=== PATIENT | female | born 1935 | race Caucasian/White ===

== ENCOUNTER 2018-01-02 12:59 | Emergency (ER) | payer OTHER ==
--- NOTE | 2018-01-02 13:39 | RAD REPORT ---
EXAM DESCRIPTION: CT - Head C Spine Mpr Wo Con - 01/02/2018 1:29 pm CLINICAL HISTORY: Head and neck injury status post fall. Head and neck pain COMPARISON: None. TECHNIQUE: Computed axial tomography of the head and cervical spine was obtained. Sagittal and coronal reconstruction was performed. All CT scans are performed using dose optimization technique as appropriate and may include automated exposure control or mA/KV adjustment according to patient size. FINDINGS: An intracranial bleed is not seen. The ventricles are normal in caliber. An extra-axial fl uid collection is not noted.Fluid within the visualized sinuses and mastoids is not seen A cervical fracture is not visualized. No dislocation is noted. IMPRESSION: No acute intracranial abnormality is seen. A cervical fracture is not visualized. If the patient continues to have symptoms to suggest intracra nial /spinal cord pathology then MRI would be recommended
[2018-01-02] MEDS ORDERED: BUPIVACAINE 0.5% PF 10 ML VIAL ONE (13:40)
[2018-01-02] MEDS ORDERED: LIDOCAINE 1% 20 ML MDV ONE (13:40)
--- NOTE | 2018-01-02 14:00 | RAD REPORT ---
EXAM DESCRIPTION: RAD -Hand Left 3 View - 01/02/2018 1:49 pm CLINICAL HISTORY: Left hand pain status post injury FINDINGS: No fracture or dislocation is seen. The bones are osteoporotic. Chondrocalcinosis within the wrist is present
--- NOTE | 2018-01-02 14:04 | RAD REPORT ---
EXAM DESCRIPTION: RAD - Knee Left 3 View - 01/02/2018 1:49 pm CLINICAL HISTORY: Left knee pain status post injury FINDINGS: No acute fracture or dislocation is seen. The bones are osteoporotic. Minimal compression of the lateral tibial plateau is unchanged from December 2016 and may be the sequela of an old fracture.
--- NOTE | 2018-01-02 14:05 | RAD REPORT ---
EXAM DESCRIPTION: RAD - Knee Right 3 View - 01/02/2018 1:49 pm CLINICAL HISTORY: Right knee pain status post fall FINDINGS: No fracture or dislocation is seen. The bones are osteoporotic
[2018-01-02] MEDS ORDERED: DERMABOND SKIN ADHESIVE TOP ONE (14:20)
--- NOTE | 2018-01-02 15:47 | ER ---
Nurse's Notes [facility] Name: Radha Encarnacion Age: 82 yrs Sex: Female : 1935 Arrival Date: 01/02/2018 Time: 13:03 Bed 18 Private MD: Diagnosis: Laceration without foreign body of left hand;Abrasion of lip;Other slipping, tripping and stumbling and falls Presentation: 01/02 13:03 Presenting complaint: Patient states: Tripped over curb at [place] [employer]. Abrasions aj to bilateral hand and left lip. Care prior to arrival: None. Mechanism of Injury: Fall from standing position. Trauma event details: Injury occurred in the county of Injury occurred: Injury occurred: January 02, 2018 Injury occurred at: 13:05. 13:03 Acuity: SANTI 4 aj 13:03 Method Of Arrival: EMS: [facility] aj 13:09 Transition of care: patient was not received from another setting of care. Onset of aj symptoms was January 02, 2018. Risk Assessment: Do you want to hurt yourself or someone else? Patient reports no desire to harm self or others. Initial Sepsis Screen: Does the patient meet any 2 criteria? No. Patient's initial sepsis screen is negative. Does the patient have a suspected source of infection? No. Patient's initial sepsis screen is negative. Trauma Activation: Alert Physician: ED Physician; Name: ; Notified At: ; Arrived At: Physician: General Surgeon; Name: ; Notified At: ; Arrived At: Physician: Radiology; Name: ; Notified At: ; Arrived At: Physician: Respiratory; Name: ; Notified At: ; Arrived At: Physician: Lab; Name: ; Notified At: ; Arrived At: Historical: - Allergies: 13:10 Benadryl; very senstive to it, makes her very anxious and wound up; aj 13:10 CEPHALOSPORINS; aj 13:10 codeine sulfate; aj 13:10 PENICILLINS; aj 13:10 Sulfa (Sulfonamide Antibiotics); aj - Home Meds: 13:10 hydrochlorothiazide 12.5 mg Oral cap 1 cap once daily [Active]; aj - PMHx: 13:10 Hypertension; R hip broken in fall- hip has metal humberto.; Vertigo; aj - PSHx: 13:10 Hysterectomy; L knee; aj - Immunization history: Last tetanus immunization: - up to date. - Social history:: Smoking status: Patient/guardian denies using tobacco. - Ebola Screening: : Patient negative for fever greater than or equal to 101.5 degrees Fahrenheit, and additional compatible Ebola Virus Disease symptoms Patient denies exposure to infectious person Patient denies travel to an Ebola-affected area in the 21 days before illness onset No symptoms or risks identified at this time. Screenin:36 Abuse screen: Denies threats or abuse. Denies injuries from another. Tuberculosis aj screening: No symptoms or risk factors identified. 14:36 Nutritional screening: No deficits noted. Fall Risk None identified. aj Primary Survey: 13:06 A: Airway: patent. Breathing/Chest: Respiratory pattern: regular, Respiratory effort: aj spontaneous, unlabored, Breath sounds: clear, bilaterally. Chest inspection: symmetrical rise and fall of the chest. Circulation: Skin color: pink, Skin temperature: warm, dry. Disability Alert. 14:05 Reassessment Airway Airway Patent Breathing/Chest Respiratory pattern Regular aj Respiratory effort Spontaneous Unlabored Circulation Color [place] Disability Alert. Assessment: 13:03 General: Appears in no apparent distress. comfortable, Behavior is calm, cooperative, aj appropriate for age. Pain: Complains of pain in mouth, right hand and left hand. Neuro: Level of Consciousness is awake, alert, obeys commands, Oriented to person, place, time, situation, Appropriate for age. Respiratory: Airway is patent Respiratory effort is even, unlabored, Respiratory pattern is regular, symmetrical. Derm: Skin is intact, is healthy with good turgor, Skin is pink, warm \T\ dry. normal. Injury Description: Abrasion sustained to right hand, left hand and mouth. Vital Signs: 13:06 BP 195 / 84; Pulse 85; Resp 19; Temp 98.5; Pulse Ox 98% on R/A; Weight 60.78 kg; Height aj 5 ft. 5 in. (165.10 cm); 15:48 BP 165 / 83; Pulse 73; Resp 18; Pulse Ox 99% on R/A; mb3 13:06 Body Mass Index 22.30 (60.78 kg, 165.10 cm) aj [place] Coma Score: 13:06 Eye Response: spontaneous(4). Verbal Response: oriented(5). Motor Response: obeys commands(6). Total: 15. Trauma Score (Adult): 13:06 Eye Response: spontaneous(1); Verbal Response: oriented(1); Motor Response: obeys aj commands(2); Systolic BP: > 89 mm Hg(4); Respiratory Rate: 10 to 29 per min(4); [place] Score: 15; Trauma Score: 12 ED Course: 13:03 Patient arrived in ED. aj 13:05 Triage completed. aj 13:05 Hernandez Barnett NP is PHCP. pm1 13:05 Cliff Murcia MD is Attending Physician. pm1 13:10 Arm band placed on left wrist. Patient placed in an exam room. aj 13:[address] via stretcher. cw1 13:29 CT Head C Spine In Process Unspecified. EDMS 13:42 Toya Dela Cruz, CARMIAN is Primary Nurse. aj 13:49 Hand Left 3 View XRAY In Process Unspecified. EDMS 13:49 Knee Left 3 View XRAY In Process Unspecified. EDMS 13:49 Knee Right 3 View XRAY In Process Unspecified. EDMS 14:36 Patient has correct armband on for positive identification. aj 14:36 Patient maintains SpO2 saturation greater than 95% on room air. aj 14:36 Assist provider with laceration repair on right hand and left hand that was 2.5 cm. or aj less using sutures. Set up tray. Performed by Hernandez Barnett STUDENT LOAN COUNSELOR Dressed with 4X4s, Patient tolerated well. 15:00 Thermoregulation: warm blanket given to patient. mb3 15:49 Patient did not have IV access during this emergency room visit. mb3 Administered Medications: 14:37 Drug: Lidocaine (1 %) 5 ml Volume: 5 ml; Route: Infiltration; aj 14:38 Drug: Bupivacaine (0.5 %) 10 ml Volume: 10 ml; Route: Infiltration; aj Intake: 16:18 PO: 60ml; Total: 60ml. mb3 Outcome: 15:46 Discharge ordered by . pm1 16:15 Patient left the ED. aj 16:17 Discharged to home ambulatory, with family. mb3 16:17 Condition: stable 16:17 Discharge instructions given to patient, family, Instructed on discharge instructions, follow up and referral plans. wound care, Demonstrated understanding of instructions, follow-up care, wound care. 16:18 Patient's length of stay was not longer than 2 hours. mb3 Signatures: Dispatcher [employer] Toya Moore RN RN aj Woodley, Crystal cw1 Hernandez Barnett, STUDENT LOAN COUNSELOR STUDENT LOAN COUNSELOR pm1 Jagdish King RN RN mb3 Corrections: (The following items were deleted from the chart) 13:07 13:03 Trauma Activation: Not Applicable ady garsia
--- NOTE | 2018-01-02 15:47 | EDPHYS ---
Physician Documentation [facility] Name: Radha Encarnacion Age: 82 yrs Sex: Female : 1935 Arrival Date: 01/02/2018 Time: 13:03 Bed 18 Private MD: ED Physician Cliff Murcia HPI: 01/02 15:00 This 82 yrs old Female presents to ER via EMS with complaints of Fall Injury. pm1 15:00 Details of fall: The patient fell from an upright position, while walking. Onset: The pm1 symptoms/episode began/occurred just prior to arrival. Associated injuries: The patient sustained left hand, laceration, mouth, abrasion. The patient has experienced a previous episode, approximately 1 years ago. The patient has not recently seen a physician. Patient was walking and tripped due to change in the elevation of the concrete. Fell with left hand outstretched and injured left hand. Laceration to left hand. abrasion to left upper lip. No headache, LOC, neck pain. 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 - Social history:: Smoking status: Patient/guardian denies using tobacco. - Ebola Screening: : Patient negative for fever greater than or equal to 101.5 degrees Fahrenheit, and additional compatible Ebola Virus Disease symptoms Patient denies exposure to infectious person Patient denies travel to an Ebola-affected area in the 21 days before illness onset No symptoms or risks identified at this time. ROS: 15:00 Constitutional: Negative for fever, chills, and weight loss, Eyes: Negative for injury, pm1 pain, redness, and discharge, ENT: Negative for injury, pain, and discharge, Neck: Negative for injury, pain, and swelling, Cardiovascular: Negative for chest pain, palpitations, and edema, Respiratory: Negative for shortness of breath, cough, wheezing, and pleuritic chest pain, Abdomen/GI: Negative for abdominal pain, nausea, vomiting, diarrhea, and constipation, Back: Negative for injury and pain, : Negative for injury, bleeding, discharge, and swelling. 15:00 Neuro: Negative for headache, weakness, numbness, tingling, and seizure. 15:00 MS/extremity: Positive for laceration, of the left hand, abrasion to left side upper lip, Negative for decreased range of motion, deformity. 15:00 Skin: Positive for abrasion(s), laceration(s). Exam: 15:00 Constitutional: This is a well developed, well nourished patient who is awake, alert, pm1 and in no acute distress. Eyes: Pupils equal round and reactive to light, extra-ocular motions intact. Lids and lashes normal. Conjunctiva and sclera are non-icteric and not injected. Cornea within normal limits. Periorbital areas with no swelling, redness, or edema. ENT: Nares patent. No nasal discharge, no septal abnormalities noted. Tympanic membranes are normal and external auditory canals are clear. Oropharynx with no redness, swelling, or masses, exudates, or evidence of obstruction, uvula midline. Mucous membranes moist. 15:00 Neck: Trachea midline, no thyromegaly or masses palpated, and no cervical lymphadenopathy. Supple, full range of motion without nuchal rigidity, or vertebral point tenderness. No Meningismus. Chest/axilla: Normal chest wall appearance and motion. Nontender with no deformity. No lesions are appreciated. Cardiovascular: Regular rate and rhythm with a normal S1 and S2. No gallops, murmurs, or rubs. Normal PMI, no JVD. No pulse deficits. Respiratory: Lungs have equal breath sounds bilaterally, clear to auscultation and percussion. No rales, rhonchi or wheezes noted. No increased work of breathing, no retractions or nasal flaring. Abdomen/GI: Soft, non-tender, with normal bowel sounds. No distension or tympany. No guarding or rebound. No evidence of tenderness throughout. Back: No spinal tenderness. No costovertebral tenderness. Full range of motion. Skin: Warm, dry with normal turgor. Normal color with no rashes, no lesions, and no evidence of cellulitis. 15:00 Head/face: Exam is negative for everett signs, deformity, raccoon eyes, Noted is abrasion(s), of the mouth. 15:00 Musculoskeletal/extremity: Extremities: grossly normal except: noted in the palmar aspect of proximal phalanx of left little finger: laceration, There is no evidence of decreased ROM, deformity. Vital Signs: 13:06 BP 195 / 84; Pulse 85; Resp 19; Temp 98.5; Pulse Ox 98% on R/A; Weight 60.78 kg; Height aj 5 ft. 5 in. (165.10 cm); 15:48 BP 165 / 83; Pulse 73; Resp 18; Pulse Ox 99% on R/A; mb3 13:06 Body Mass Index 22.30 (60.78 kg, 165.10 cm) aj Thang Coma Score: 13:06 Eye Response: spontaneous(4). Verbal Response: oriented(5). Motor Response: obeys commands(6). Total: 15. Trauma Score (Adult): 13:06 Eye Response: spontaneous(1); Verbal Response: oriented(1); Motor Response: obeys aj commands(2); Systolic BP: > 89 mm Hg(4); Respiratory Rate: 10 to 29 per min(4); [place] Score: 15; Trauma Score: 12 Laceration: 15:41 Wound Repair of 3cm ( 1.2in ) subcutaneous laceration to palmar aspect of proximal pm1 phalanx of left little finger. Irregularly shaped.. Distal neuro/vascular/tendon intact. Anesthesia: Local anesthetic administered with 2 mls of Lido/Marcaine. Wound prep: Extensive cleansing with hibiclenz by dc, Wound irrigation with saline by dc, Wound explored extensively, Copious irrigation. Skin closed with 11 5-0 Prolene using simple sutures and sterile technique. Subcutaneous tissue closed with 1 5-0 Vicryl using simple sutures and sterile technique. Dressed with Neosporin, 4x4's. Patient tolerated well. 15:41 Wound Repair of 1cm ( 0.4in ) skin tear laceration to palmar aspect of proximal phalanx pm1 of left thumb. skin tear. Distal neuro/vascular/tendon intact. Wound prep: Extensive cleansing with hibiclenz by me, Wound irrigation with saline by me, Wound explored extensively, Copious irrigation. Skin closed with 1-0 Adhesive skin closure using Dermabond. Patient tolerated well. MDM: 13:14 Patient medically screened. pm1 15:44 Data reviewed: vital signs. Data interpreted: Pulse oximetry: on room air is 98 %. pm1 Interpretation: normal. Counseling: I had a detailed discussion with the patient and/or guardian regarding: the historical points, exam findings, and any diagnostic results supporting the discharge/admit diagnosis, radiology results, the need for outpatient follow up, suture removal in 10-14 days, to return to the emergency department if symptoms worsen or persist or if there are any questions or concerns that arise at home. 01/02 13:15 Order name: CT Head C Spine; Complete Time: 13:50 pm1 01/02 13:15 Order name: Hand Left 3 View XRAY; Complete Time: 14:06 pm1 01/02 13:15 Order name: Knee Left 3 View XRAY; Complete Time: 14:06 pm1 01/02 13:15 Order name: Knee Right 3 View XRAY; Complete Time: 14:06 pm1 01/02 13:15 Order name: Prolene, Sutures; Complete Time: 13:42 pm1 01/02 13:15 Order name: Dressing - Wound; Complete Time: 13:42 pm1 01/02 13:15 Order name: Gloves, Sterile; Complete Time: 13:42 pm1 01/02 13:15 Order name: Setup Suture Tray; Complete Time: 13:42 pm1 01/02 14:17 Order name: Dermabond; Complete Time: 14:38 pm1 Administered Medications: 14:37 Drug: Lidocaine (1 %) 5 ml Volume: 5 ml; Route: Infiltration; aj 14:38 Drug: Bupivacaine (0.5 %) 10 ml Volume: 10 ml; Route: Infiltration; aj Disposition: 19:00 Co-signature as Attending Physician, Cliff Murcia MD. Disposition: 01/02/18 15:46 Discharged to Home. Impression: Laceration without foreign body of left hand, Abrasion of lip, Other slipping, tripping and stumbling and falls. - Condition is Stable. - Discharge Instructions: Tissue Adhesive Wound Care, Fall Prevention and Home Safety, Laceration Care, Adult. - Medication Reconciliation Form, Thank You Letter form. - Follow up: Emergency Department; When: As needed; Reason: Worsening of condition. Follow up: Private Physician; When: 10 - 14 days; Reason: Recheck today's complaints, Continuance of care, Staple/Suture removal, Re-evaluation by your physician. - Problem is new. - Symptoms have improved. Signatures: Dispatcher [employer] EDToya Foss RN RN aj Marinas, Patrick, DANDRE ELECTRIC LIFT TRUCK DRIVER pm1 Cliff Murcia MD MD gs Corrections: (The following items were deleted from the chart) 16:15 15:46 01/02/2018 15:46 Discharged to Home. Impression: Laceration without foreign body aj of left hand; Abrasion of lip; Other slipping, tripping and stumbling and falls. Condition is Stable. Forms are Medication Reconciliation Form, Thank You Letter, Antibiotic Education, Prescription Opioid Use. Follow up: Emergency Department; When: As needed; Reason: Worsening of condition. Follow up: Private Physician; When: 10 - 14 days; Reason: Recheck today's complaints, Continuance of care, Staple/Suture removal, Re-evaluation by your physician. Problem is new. Symptoms have improved. pm1
[2018-01-02 16:44] VITALS: TEMP 98.5
[2018-01-02 16:45] VITALS: BP 165/83; O2SAT 99
== END 2018-01-02 16:15 | disposition home or self-care (01) ==
LOC: ER 12:59
PROC: 0JQK0ZZ Repair Left Hand Subcutaneous Tissue and Fascia, Open Approach (ICD-10-PCS; principal; 2018-01-02)
DX: S61.012A Laceration without foreign body of left thumb without damage to nail, initial encounter (principal); S00.511A Abrasion of lip, initial encounter; W01.0XXA Fall on same level from slipping, tripping and stumbling without subsequent striking against object, initial encounter; Y93.01 Activity, walking, marching and hiking; Y92.9 Unspecified place or not applicable; I10 Essential (primary) hypertension; Z88.3 Allergy status to other anti-infective agents; Z88.5 Allergy status to narcotic agent; Z88.0 Allergy status to penicillin; Z88.2 Allergy status to sulfonamides; Z88.8 Allergy status to other drugs, medicaments and biological substances
CPT/HCPCS: 12002; 70450; 72125; 73130; 73562 ×2; 99285; G0168

== ENCOUNTER 2021-11-10 13:55 | Observation (INO) | payer OTHER ==
--- OUTSIDE RECORDS SUMMARY | 2021-11-10 13:57 | XMS REPORT | Continuity of Care Document ---
:1935 Author Organization [facility] t Address [address] [place] [address] [address] [place] [address] Care Team Providers Name Role Phone Jorge Luis Interiano MD Attending Clinician Jorge Luis INTERIANO Attending Clinician Unavailable Payers Payer Name Policy Type Policy Number Effective Date Expiration Date S ource Problems Condition Condition Condition Status Onset Resolution Last Treating Co mments Source Name Details Category Date Date Treatment Clinician Date Hip fx, Hip fx, Disease Active 2015- [facility] right, right, 7-20 ity of closed, closed, 00:00: [place] initial initial 00 Medical encounter encounter Bran ch Allergies, Adverse Reactions, Alerts Allergy Allergy Status Severity Reaction(s) Onset Inactive Treating Comm ents Source Name Type Date Date Clinician Penicill Propensi Active Shortness of Univers in ty to Breath 7-20 ity of adverse 00:00: [place] reaction 00 Medical s Branch Sulfa Propensi Active Nausea Univers (Sulfona ty to and/or 7-20 ity of mide adverse Vomiting 00:00: [place] Antibiot reaction 00 Medica l ics) s Branch PENICILL DRUG Active SOB Univers IN INGREDI 7-20 ity of 00:00: [place] 00 Medical Branch SULFA Drug Active N/V 2015-0 Univers (SULFONA Class 7-20 ity of MIDE 00:00: [place] ANTIBIOT 00 Medical ICS) Branch Social History Social Habit Start Date Stop Date Quantity Comments Source Sex Assigned At [facility] Medical Branch Exposure to Not sure [facility] SARS-CoV-2 (event) Medica l Branch Alcohol intake 2016-08-06 2016-08-06 [facility] 00:00:00 00:00:00 Medical Branch Smoking Status Start Date Stop Date Source Never smoker [facility] Medical Branch Medications Ordered Filled Start Stop Current Ordering Indication Dosage Frequency Signature Comments Components Source Medication Medication Date Date Medication? Clinician (SIG) Name Name DIPHENHYDRA 2019-07 Yes Take by Un leelee MINE HCL 2-17 mouth. ity of (BENADRYL 20:41: [place] ALLERGY 58 Medical ORAL) Branch codeine 15 2019-07 Yes 15mg Take 15 mg U nivers mg tablet 2-17 by mouth ity of 20:41: every 4 [place] 58 (four) Medical hours as Branch needed for Pain. AMINO 2019-07 Yes Take by Univers ACIDS/CALCI 2-17 mouth. ity of UM 20:41: [place] (CALCIMIN-3 58 Medical 00 ORAL) Branch DIPHENHYDRA 2019-07 Yes Take by Un leelee MINE HCL 2-17 mouth. ity of (BENADRYL 20:41: [place] ALLERGY 58 Medical ORAL) Branch codeine 15 2019-07 Yes 15mg Take 15 mg U nivers mg tablet 2-17 by mouth ity of 20:41: every 4 [place] 58 (four) Medical hours as Branch needed for Pain. AMINO 2019-07 Yes Take by Univers ACIDS/CALCI 2-17 mouth. ity of UM 20:41: [place] (CALCIMIN-3 58 Medical 00 ORAL) Branch DIPHENHYDRA 2019-07 Yes Take by Un leelee MINE HCL 2-17 mouth. ity of (BENADRYL 20:41: [place] ALLERGY 58 Medical ORAL) Branch codeine 15 2019-07 Yes 15mg Take 15 mg U nivers mg tablet 2-17 by mouth ity of 20:41: every 4 [place] 58 (four) Medical hours as Branch needed for Pain. AMINO 2019-07 Yes Take by Univers ACIDS/CALCI 2-17 mouth. ity of UM 20:41: [place] (CALCIMIN-3 58 Medical 00 ORAL) Branch meclizine Yes TK 1 T PO Uni vers 25 mg 1-05 Q 8 HOURS ity of tablet 00:00: PRN. [place] 00 Medical Branch meclizine Yes TK 1 T PO Uni vers 25 mg 1-05 Q 8 HOURS ity of tablet 00:00: PRN. [place] [address] Medical Branch meclizine Yes TK 1 T PO Uni vers 25 mg 1-05 Q 8 HOURS ity of tablet 00:00: PRN. [place] [address] Medical Branch hydroCHLORO 2015- Yes TK 1 T PO U nivers thiazide 2-19 QD. ity of 12.5 mg 00:00: [place] tablet Medical Branch hydroCHLORO 2015-07 Yes TK 1 T PO U nivers thiazide 2-19 QD. ity of 12.5 mg 00:00: [place] tablet Medical Branch hydroCHLORO 2015-07 Yes TK 1 T PO U nivers thiazide 2-19 QD. ity of 12.5 mg 00:00: [place] tablet [facility] DOC-Q-LACE Yes TK 1 C Univ ers 100 mg 7-11 PO BID. ity of capsule 00:00: [facility] ELIQUIS 2.5 Yes TK 1 Univer s mg tablet 7-11 TABLET BY ity o f 00:00: MOUTH BID [facility] DOC-Q-LACE Yes TK 1 C Univ ers 100 mg 7-11 PO BID. ity of capsule 00:00: [facility] ELIQUIS 2.5 Yes TK 1 Univer s mg tablet 7-11 TABLET BY ity o f 00:00: MOUTH BID [facility] DOC-Q-LACE Yes TK 1 C Univ ers 100 mg 7-11 PO BID. ity of capsule 00:00: [facility] ELIQUIS 2.5 Yes TK 1 Univer s mg tablet 7-11 TABLET BY ity o f 00:00: MOUTH BID [place] [facility] Vital Signs Vital Name Observation Time Observation Value Comments Source Systolic blood 2020-07-05 20:46:00 173 mm[Hg] Univer sity [facility] pressure [facility] Diastolic blood 2020-07-05 20:46:00 81 mm[Hg] Unive rsity [facility] Heart rate 2020-07-05 20:46:00 77 /min [facility] Body height 2020-07-05 20:40:00 166.4 cm [facility] Body weight 2020-07-05 20:40:00 64.864 kg [facility] BMI 2020-07-05 20:40:00 23.43 kg/m2 [facility] Procedures This patient has no known procedures. Encounters Start End Encounter Admission Attending Care Care Encounter Source Date/Time Date/Time Type Type Clinicians Facility Department ID 2020-07-05 [facility]05 [facility] [id number] Univers 14:49:43 23:59:00 Encounter [facility] [id number] ity of Surgical [id number] [place] Specialti [id number] [place] 809 [facility] 2020-07-05 2020-07-05 Office [facility] [id number] Univers 14:15:11 15:06:40 Visit Austin Kang [facility] [id number] it y of Surgical [id number] [place] Specialti [id number] [place] 198 [facility] 2020-07-05 2020-07-05 [facility] [id number] Univers 14:30:00 14:30:00 [place] [id number] [facility]-07-05 2020-07-05 [facility] [id number] Univers 14:30:00 14:30:00 [place] [facility] Results This patient has no known results.
[2021-11-10] MEDS ORDERED: NA CHLORIDE 0.9% 1,000 ML ONE (15:14)
--- NOTE | 2021-11-10 15:24 | RAD REPORT ---
EXAM DESCRIPTION: RAD - Chest Single View - 11/10/2021 3:18 pm CLINICAL HISTORY: confusion COMPARISON: Portable 01/03/2017 TECHNIQUE: AP portable chest image was obtained 11/10/2021 3:18 pm . FINDINGS: No focal pneumonia seen. Fibrotic lung pattern is present accentuated by shallow inspirati on. Pulmonary edema, failure or volume overload are not suspected. No hilar mass or lymphadenopathy. Heart and vasculature are normal. No measurable pleural effusion and no pneumothorax. No acute bony abnormality seen. No acute aortic findings suspected. IMPRESSION: No acute cardiopulmonary process.
--- NOTE | 2021-11-10 15:40 | RAD REPORT ---
EXAM DESCRIPTION: CT - Head Brain Wo Cont - 11/10/2021 3:21 pm CLINICAL HISTORY: Delirium COMPARISON: Head Brain Wo Cont dated 09/08/2018 TECHNIQUE: Axial 5 mm thick images of the head were obtained without IV contrast. All CT scans are performed using dose optimization technique as appropriate and may include automated exposure control or mA/KV adjustment according to patient size. FINDINGS: No intracranial hemorrhage, mass, edema or shift of mid-line structures. No acute infarcti on changes seen. No abnormal extra-axial fluid collections. Mild for age atrophy changes are present similar to 2019. Ventricles are in proportion the amount of volume loss. Cerebral white matter chroni c ischemic changes are mild and stable. Mastoid air cells and visualized portions of the paranasal sinuses are clear. No acute bony findings. IMPRESSION: Negative non-contrast CT head examination for acute finding. Atrophy and chronic ischemic pattern matches the 2019 comparison.
[2021-11-10] MEDS ORDERED: HYDRALAZINE HCL 20 MG/ML VIAL ONE (15:43)
[2021-11-10 15:59] LABS: Urine Blood Negative (Negative); Urine Glucose Negative (Negative); Urine Protein Negative (Negative)
[2021-11-10 16:10] LABS: Urine Bacteria <20 /HPF (<20); Urine RBC NONE SEEN /HPF (NONE SEEN)
[2021-11-10 17:09] LABS: Absolute Lymphocytes (CBC) 1.9 K/uL (0.7-4.9); Hematocrit 44.7 % (36.0-45.0); Lymphocytes % 27.1 % (15.3-44.8); RBC Red Blood Cell Count 4.78 M/uL (3.86-4.86)
[2021-11-10 17:15] LABS: MPV 9.2 fL (7.6-11.3)
[2021-11-10 17:18] LABS: Protime INR 0.91
[2021-11-10 17:29] LABS: Bilirubin Total 0.4 mg/dL (0.2-1.0); Potassium 3.7 mmol/L (3.5-5.1); Protein, Total 6.5 g/dL (6.4-8.2)
[2021-11-10] MEDS ORDERED: CEFTRIAXONE 1000 MG/VIAL ONE (18:27)
--- NOTE | 2021-11-10 18:40 | ER ---
Nurse's Notes [facility] Name: Radha Encarnacion Age: 86 yrs Sex: Female : 1935 Arrival Date: 11/10/2021 Time: 13:57 Bed 2 Private MD: Diagnosis: Altered mental status, unspecified;Dysuria-elevated lactate Presentation: 11/10 14:18 Chief complaint: Granddaughter stated that over the past 24 hours she has been more ww confused. Patient was unable to find her bedroom, which is unusual. Coronavirus screen: Vaccine status: Patient reports receiving the 2nd dose of the covid vaccine. Client denies travel out of the [place] in the last 14 days. Ebola Screen: Patient denies travel to an Ebola-affected area in the 21 days before illness onset. Initial Sepsis Screen: Does the patient meet any 2 criteria? No. Patient's initial sepsis screen is negative. Does the patient have a suspected source of infection? No. Patient's initial sepsis screen is negative. Risk Assessment: Do you want to hurt yourself or someone else? Patient reports no desire to harm self or others. Onset of symptoms is unknown. 14:18 Method Of Arrival: Ambulatory ww 14:18 Acuity: SANTI 3 ww Triage Assessment: 14:19 General: Appears in no apparent distress. comfortable, Behavior is calm, cooperative. ww Pain: Complains of pain in bilateral knee pain. Neuro: Level of Consciousness is awake, alert, obeys commands, confused, intermittently confused. Oriented to person, place, situation. Cardiovascular: Patient's skin is warm and dry. Respiratory: Airway is patent Respiratory effort is even, unlabored, Respiratory pattern is regular, symmetrical. GI: No signs and/or symptoms were reported involving the gastrointestinal system. : Reports pain urgency, urinary frequency, had an UTI last month. 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 - Social history:: Smoking status: Patient denies any tobacco usage or history of. Patient/guardian denies using alcohol, street drugs, The patient lives with family. - Family history:: not pertinent. Screenin:22 Abuse screen: Denies threats or abuse. Denies injuries from another. Nutritional ww screening: No deficits noted. Tuberculosis screening: No symptoms or risk factors identified. 15:26 Fall Risk No fall in past 12 months (0 pts). Secondary diagnosis (15 points) confusion. ap3 IV access (20 points). Ambulatory Aid- None/Bed Rest/Nurse Assist (0 pts). Gait- Normal/Bed Rest/Wheelchair (0 pts) Mental Status- Oriented to own ability (0 pts). Total Aggarwal Fall Scale indicates Low Risk Score (25-44 pts). Fall prevention measures have been instituted. Side Rails Up X 2 Placed close to Nursing Station Frequent Obs/Assesments occuring Family Present and informed to notify staff if they need to leave bedside As available Patient and Family Educated on Fall Prevention Program and strategies. Assessment: 15:06 General: Appears in no apparent distress. comfortable, Behavior is calm, cooperative, ap3 appropriate for age. Pain: Complains of pain in groin Aggravated by urinating. Neuro: Level of Consciousness is awake, alert, obeys commands, Oriented to person, place, situation, Gait is steady, Speech is normal, family reports bouts of confusion in the patient. Cardiovascular: Patient's skin is warm and dry. Respiratory: Airway is patent Respiratory effort is even, unlabored. 16:30 Reassessment: Patient appears in no apparent distress at this time. Patient and/or vg1 family updated on plan of care and expected duration. Pain level reassessed. Patient is alert, oriented x 3, equal unlabored respirations, skin warm/dry/pink. Patient denies pain at this time. Patient states feeling better. 18:10 Reassessment: Patient appears in no apparent distress at this time. Patient and/or vg1 family updated on plan of care and expected duration. Pain level reassessed. Patient is alert, oriented x 3, equal unlabored respirations, skin warm/dry/pink. 19:36 Reassessment: Assisted patient back into bed after using bedside commode, granddaughter lp1 at bedside; Aware of pending admission, patient eating food brought by family member; Hospitalist at bedside to discuss plan of care with patient and family. 19:37 General: Appears in no apparent distress. Behavior is cooperative, appropriate for age. lp1 Pain: Denies pain. Neuro: Level of Consciousness is awake, alert, obeys commands, Oriented to person, place. Respiratory: Respiratory effort is even, unlabored. Derm: Skin is intact, is thin, Skin is dry, Skin is normal. Musculoskeletal: Circulation, motion, and sensation intact. Vital Signs: 14:18 BP 143 / 84; Pulse 80; Resp 16; Temp 98.9; Pulse Ox 100% on R/A; Weight 58.97 kg; ww Height 5 ft. 5 in. (165.10 cm); Pain 0/10; 15:27 Pulse 81; Pulse Ox 100% ; ap3 15:35 BP 192 / 79; Pulse 70; ap3 16:30 Temp 98.3(O); ap3 16:30 BP 146 / 61; ap3 16:30 BP 126 / 62; Pulse 50; Resp 16; Pulse Ox 100% on R/A; vg1 18:11 BP 168 / 79; Pulse 93; Pulse Ox 97% on R/A; ap3 19:37 BP 157 / 79; Pulse 85; Resp 19; Temp 98.9(O); Pulse Ox 98% on R/A; lp1 14:18 Body Mass Index 21.63 (58.97 kg, 165.10 cm) ED Course: 13:57 Patient arrived in ED. ds1 14:19 Triage completed. ww 14:19 Arm band placed on right wrist. ww 14:52 Loretta Wright, RN is Primary Nurse. vg1 14:53 Ean Pulido MD is Attending Physician. ma2 15:05 Inserted saline lock: 22 gauge in right wrist, using aseptic technique. vg1 15:07 EKG done, by ED staff, reviewed by Ean Pulido MD. ap3 15:08 Patient has correct armband on for positive identification. Placed in gown. Bed in low ap3 position. Call light in reach. Side rails up X2. Adult w/ patient. rating specialist on. Pulse ox on. NIBP on. Door closed. Noise minimized. Warm blanket given. 15:19 Chest Single View XRAY In Process Unspecified. EDMS 15:23 CT Head Brain wo Cont In Process Unspecified. EDMS 15:26 Patient moved back from CT. ap3 16:04 Urine Microscopic Only Sent. ap3 16:06 ED physician to see patient. ap3 18:39 Duong Manuel is Hospitalizing Provider. ma2 19:30 Primary Nurse role handed off by Loretta Wright, RN mw2 19:35 Meghann Daily, RN is Primary Nurse. lp1 19:36 No provider procedures requiring assistance completed. Patient admitted, IV remains in lp1 place. Administered Medications: 15:13 Drug: NS 0.9% 1000 ml Route: IV; Rate: 1 bolus; Site: right forearm; ap3 15:49 Drug: hydrALAZINE 10 mg Route: IVP; Site: right forearm; ap3 18:07 Follow up: Response: No adverse reaction ap3 18:28 Drug: Rocephin (cefTRIAXone) 1 grams Route: IV; Rate: calculated rate; Site: right ld1 wrist; 18:28 Follow up: Response: No adverse reaction ld1 Outcome: 18:39 Decision to Hospitalize by Provider. ma2 19:36 Condition: stable lp1 19:36 Instructed on the need for admit. 20:13 Admitted to Med/surg via wheelchair, room 204, with chart, Report called to CARMINA Hernandez lp1 20:32 Patient left the ED. lp1 Signatures: Dispatcher [employer] EDMA Russ Veronique ds1 Meghann Daily, RN RN lp1 Ean Pulido MD MD ma2 Toya Beckwith RN RN ap3 Candelaria Patterson mw2 Loretta Wright, CARMINA RN 1 Ruthy Martínez RN RN ld1 Nasreen Wong RN RN ww
--- NOTE | 2021-11-10 18:40 | EDPHYS ---
Physician Documentation [facility] Name: Radha Encarnacion Age: 86 yrs Sex: Female : 1935 Arrival Date: 11/10/2021 Time: 13:57 Bed 2 Private MD: ED Physician Ean Pulido HPI: 11/10 16:13 This 86 yrs old Female presents to ER via Ambulatory with complaints of Confusion. ma2 16:13 86-year-old female history of hypertension, patient has been having increased ma2 forgetfulness over the last 2 days, according to granddaughter who is at bedside she said she has been confused and his confusion has been on and off, patient said she has dysuria and suprapubic discomfort burning, which she had before when she had UTI, describe frequency, denies abdominal pain or vomiting or diarrhea.. 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 - Social history:: Smoking status: Patient denies any tobacco usage or history of. Patient/guardian denies using alcohol, street drugs, The patient lives with family. - Family history:: not pertinent. ROS: 16:13 Constitutional: Negative for fever, chills, and weight loss. ma2 16:13 All other systems are negative. Exam: 16:13 Constitutional: This is a well developed, well nourished patient who is awake, alert, ma2 and in no acute distress. Head/Face: Normocephalic, atraumatic. Eyes: Pupils equal round and reactive to light, extra-ocular motions intact. Lids and lashes normal. Conjunctiva and sclera are non-icteric and not injected. Cornea within normal limits. Periorbital areas with no swelling, redness, or edema. ENT: Nares patent. No nasal discharge, no septal abnormalities noted. Tympanic membranes are normal and external auditory canals are clear. Oropharynx with no redness, swelling, or masses, exudates, or evidence of obstruction, uvula midline. Mucous membranes moist. Neck: Trachea midline, no thyromegaly or masses palpated, and no cervical lymphadenopathy. Supple, full range of motion without nuchal rigidity, or vertebral point tenderness. No Meningismus. Chest/axilla: Normal chest wall appearance and motion. Nontender with no deformity. No lesions are appreciated. Cardiovascular: Regular rate and rhythm with a normal S1 and S2. No gallops, murmurs, or rubs. Normal PMI, no JVD. No pulse deficits. Respiratory: Lungs have equal breath sounds bilaterally, clear to auscultation and percussion. No rales, rhonchi or wheezes noted. No increased work of breathing, no retractions or nasal flaring. Abdomen/GI: Soft, non-tender, with normal bowel sounds. No distension or tympany. No guarding or rebound. No evidence of tenderness throughout. Back: No spinal tenderness. No costovertebral tenderness. Full range of motion. Skin: Warm, dry with normal turgor. Normal color with no rashes, no lesions, and no evidence of cellulitis. MS/ Extremity: Pulses equal, no cyanosis. Neurovascular intact. Full, normal range of motion. Neuro: Awake and alert, GCS 15, oriented to person, place, time, and situation. Cranial nerves II-XII grossly intact. Motor strength 5/5 in all extremities. Sensory grossly intact. Cerebellar exam normal. Normal gait. Vital Signs: 14:18 BP 143 / 84; Pulse 80; Resp 16; Temp 98.9; Pulse Ox 100% on R/A; Weight 58.97 kg; ww Height 5 ft. 5 in. (165.10 cm); Pain 0/10; 15:27 Pulse 81; Pulse Ox 100% ; ap3 15:35 BP 192 / 79; Pulse 70; ap3 16:30 Temp 98.3(O); ap3 16:30 BP 146 / 61; ap3 16:30 BP 126 / 62; Pulse 50; Resp 16; Pulse Ox 100% on R/A; vg1 18:11 BP 168 / 79; Pulse 93; Pulse Ox 97% on R/A; ap3 19:37 BP 157 / 79; Pulse 85; Resp 19; Temp 98.9(O); Pulse Ox 98% on R/A; lp1 14:18 Body Mass Index 21.63 (58.97 kg, 165.10 cm) ww MDM: 16:13 Differential diagnosis: arrythmia, dehydration, stress disorder, UTI. Data reviewed: ga2 vital signs, nurses notes. Counseling: I had a detailed discussion with the patient and/or guardian regarding: the historical points, exam findings, and any diagnostic results supporting the discharge/admit diagnosis, the presence of at least one elevated blood pressure reading (>120/80) during this emergency department visit, the need for outpatient follow up. Response to treatment: the patient's symptoms have markedly improved after treatment. 17:04 Patient medically screened. ga2 18:36 ED course: istPatient has elevated lactate with delirium, possible UTI although UA is ma2 unremarkable however will send urine cultures, patient does have dysuria and frequency. Discussed with Carolin Brown. 11/10 14:54 Order name: Blood Culture Adult (2) [facility] 11/10 14:54 Order name: CBC with Diff; Complete Time: 19:16 [facility] 11/10 14:54 Order name: CMP; Complete Time: 17:45 [facility] 11/10 14:54 Order name: Lactate; Complete Time: 17:45 [facility] 11/10 14:54 Order name: Protime (+inr); Complete Time: 17:45 [facility] 11/10 14:54 Order name: Ptt, Activated; Complete Time: 17:45 [facility] 11/10 14:54 Order name: Urine Microscopic Only; Complete Time: 17:05 [facility] 11/10 14:54 Order name: Chest Single View XRAY; Complete Time: 15:36 [facility] 11/10 14:54 Order name: CT Head Brain wo Cont; Complete Time: 16:04 [facility] 11/10 15:59 Order name: Urine Dipstick-Ancillary; Complete Time: 16:04 [facility] 11/10 16:22 Order name: SARS-COV-2 RT PCR (Document "Date of Onset" if Symptomatic); Complete Time: [facility] 19:16 11/10 19:14 Order name: CBC Smear Scan; Complete Time: 19:16 [facility] 11/10 14:54 Order name: Accucheck; Complete Time: 18:07 [facility] 11/10 14:54 Order name: Cardiac monitoring; Complete Time: 14:55 [facility] 11/10 14:54 Order name: EKG - Nurse/Tech; Complete Time: 15:06 [facility] 11/10 14:54 Order name: IV Saline Lock - Large Bore; Complete Time: 15:10 [facility] 11/10 14:54 Order name: Labs collected and sent; Complete Time: 18:07 [facility] 11/10 14:54 Order name: O2 Per Protocol; Complete Time: 14:55 [facility] 11/10 14:54 Order name: O2 Sat Monitoring; Complete Time: 14:54 [facility] Administered Medications: 15:13 Drug: NS 0.9% 1000 ml Route: IV; Rate: 1 bolus; Site: right forearm; ap3 15:49 Drug: hydrALAZINE 10 mg Route: IVP; Site: right forearm; ap3 18:07 Follow up: Response: No adverse reaction ap3 18:28 Drug: Rocephin (cefTRIAXone) 1 grams Route: IV; Rate: calculated rate; Site: right ld1 wrist; 18:28 Follow up: Response: No adverse reaction ld1 Disposition Summary: 11/10/21 18:39 Hospitalization Ordered Hospitalization Status: Observation ga2 Provider: Duong Manuel [facility] Location: Telemetry/MedSurg (observation) ma2 Condition: Stable ma2 Problem: new ma2 Symptoms: are unchanged ga2 Bed/Room Type: Standard [facility] Room Assignment: 204(11/10/21 19:21) vc1 Diagnosis - Altered mental status, unspecified ma2 - Dysuria - elevated lactate ma2 Forms: - Medication Reconciliation Form ma2 - SBAR form ma2 Signatures: Dispatcher [employer] EDEan Pisano MD MD ma2 Toya Beckwith RN RN ap3 Ruthy Martínez RN RN ld1 Nasreen Wong RN RN ww Gabrielle Ruiz RN RN vc1 Noemy Shaver PA PA sb3 Corrections: (The following items were deleted from the chart) 19:21 18:39 ma2 vc1
[2021-11-10 19:14] LABS: Blood Morphology Comment NOT SEEN (NOT SEEN); Platelet Estimate ADEQ; White Blood Cell Scan OK (OK)
[2021-11-10] MEDS ORDERED: HYDRALAZINE HCL 20 MG/ML VIAL IV PRN (19:19)
--- NOTE | 2021-11-10 19:19 | P.HP ---
Certification for Inpatient Patient admitted to: Observation With expected LOS: <2 Midnights Patient will require the following post-hospital care: None Practitioner: I am a practitioner with admitting privileges, knowledge of patient current condition, hospital course, and medical plan of care. Services: Services provided to patient in accordance with Admission requirements found in Title 42 Section 412.3 of the Code of Federal Regulations Patient History Date of Service: 11/10/21 Primary Care Provider: Fatoumata Reason for admission: AMS, Dysuria, Elevated Lactate History of Present Illness: Patient is an 86-year-old female with hypertension who presented to the ED with complaints of increasing confusion. Per patient's granddaughter, patient was scared to sleep in her house alone last night (which is unusual for her) and called a friend to pick her up so she could stay with her. This morning, she noticed that she was acting confused and could not find her bathroom. Granddaughter states that she does have some baseline confusion but it has been worse today. Patient is also complaining of dysuria, urgency, suprapubic burning that has been occurring for about a month. Work-up in the ED revealed a lactic acid of 2.3 and elevated blood pressure. Head CT was negative and urine negative for UTI. Vital signs stable. She was given 1 L of fluid, hydralazine, and Rocephin. Upon my assessment, patient states she is feeling "ditsy." she knows her name and where she is but she does not know the year (she reports she never knows). She is asking for Dr. Ham. Will admit patient for observation. Allergies Penicillins Allergy (Verified 01/08/16 20:22) Shortness of breath Sulfa (Sulfonamide Antibiotics) Allergy (Verified 01/08/16 20:22) Rash codeine Adverse Reaction (Intermediate, Verified 01/10/16 10:32) Hives/Rash Cephalosporins Adverse Reaction (Verified 01/08/16 20:22) Nausea/Vomiting diphenhydramine [From Benadryl] Adverse Reaction (Verified 01/08/16 20:22) Shortness of breath codeine sul Allergy (Uncoded 01/03/17 22:04) Unknown codeine sulfat Allergy (Uncoded 01/09/16 06:34) Unknown codeine sulfate Allergy (Uncoded 06/16/18 16:19) Unknown Home medications list reviewed: Yes Home Medications: Apixaban [Eliquis *] 2.5 mg PO BID #30 tablet 01/28/16 Docusate [Colace Cap*] 100 mg PO BID #60 cap 01/28/16 Melatonin [Melatonin*] 3 mg PO BEDTIME PRN PRN #14 tablet 01/28/16 traMADol HCL [Ultram*] 50 mg PO Q6HP PRN #60 tab 01/28/16 - Past Medical/Surgical History Diabetic: No -: bilateral cataract -: HTN -: Anemia -: Hysterectomy -: Knee surgery L -: Cataract surgery -: [place] tooth removal Psychosocial/ Personal History: Patient lives at home alone. - Family History Father -: Hypertension, Stroke Mother -: Cancer Sister -: Cancer - Social History Smoking Status: Never smoker Alcohol use: No CD- Drugs: No Caffeine use: Yes Place of Residence: Home Review of Systems Genitourinary: Dysuria, Frequency Neurological: Confusion Physical Examination - Physical Exam General: Alert, In no apparent distress, Oriented x2 HEENT: Atraumatic, PERRLA, Mucous membr. moist/pink, EOMI, Sclerae nonicteric Neck: Supple, 2+ carotid pulse no bruit, No LAD, Without JVD or thyroid abnormality Respiratory: Clear to auscultation bilaterally, Normal air movement Cardiovascular: No edema, Regular rate/rhythm, Normal S1 S2 Gastrointestinal: Normal bowel sounds, No tenderness Musculoskeletal: No tenderness Integumentary: No rashes Neurological: Normal speech, Normal strength at 5/5 x4 extr, Normal tone, Normal affect - Studies Laboratory Data (last 24 hrs) 11/10/21 16:55: PT 10.0, INR 0.91, APTT 18.4 L 11/10/21 16:55: Sodium 142, Potassium 3.7, BUN 18, Creatinine 0.84, Glucose 97, Total Bilirubin 0.4, AST 20, ALT 17, Alkaline Phosphatase 85 11/10/21 16:55: WBC 6.9, Hgb 15.1 H, Hct 44.7, Plt Count 76 L Assessment and Plan - Problems (Diagnosis) (1) AMS (altered mental status) Current Visit: Yes Status: Acute Qualifiers: Altered mental status type: unspecified Qualified Code(s): R41.82 - Altered mental status, unspecified (2) UTI symptoms Current Visit: Yes Status: Acute (3) Elevated lactic acid level Current Visit: Yes Status: Acute (4) HTN (hypertension) Current Visit: Yes Status: Chronic Qualifiers: Hypertension type: primary hypertension Qualified Code(s): I10 - Essential (primary) hypertension - Plan -Source of infection is unclear at this time. We will continue Rocephin. Patient does report urinary symptoms although urine negative for UTI. Pend urine culture and blood culture -Initial lactic acid was elevated 2.3. She received 1 L fluid. We will repeat and continue IV fluid. No tachycardia or fever -Patient was hypertensive in the ED and received hydralazine. Patient's granddaughter states that she does not take any medication on a daily basis. We will continue to monitor -Patient takes Eliquis daily. continue for DVT prophylaxis Patient's granddaughter states that her family is moving into a house 2 doors down from hers. Patient does live by herself however she has a service that comes and stays with her from 9-7 to help with ADLs. They are considering having them stay overnight as well. Discharge Plan: Home Plan to discharge in: 24 Hours - Advance Directives Does patient have a Living Will: No Does patient have a Durable POA for Healthcare: Yes - Code Status/Comfort Care Code Status Assessed: Yes (Full) Critical Care: No Time Spent Managing Pts Care (In Minutes): 50
[2021-11-10] MEDS ORDERED: ONDANSETRON 4 MG/2 ML VIAL IV PRN (20:03)
[2021-11-10] MEDS ORDERED: ACETAMINOPHEN 500 MG TAB PO PRN (20:03)
[2021-11-10 20:53] VITALS: O2SAT 98
[2021-11-10] MEDS ORDERED: APIXABAN 2.5 MG TABLET PO SCH (21:00)
[2021-11-10 21:08] VITALS: BMI 20.8
[2021-11-10] MEDS ORDERED: LORazepam 2 MG/ML VIAL IV PRN (21:52)
--- NOTE | 2021-11-10 22:26 | P.PN ---
Date of Service: 09/12/21 Received a call at 22:05 stating that patient was agitated and wanting to leave AMA. Went to assess patient and she was confused, scared, and paranoid about staying in the hospital. Patient's granddaughter stated earlier that she gets more confused at night and last night she got scared too. No family was present at the time. Patient did call her brother and asked him to take her home. Spoke with patient and reassured her safety and explained why she was in the hospital. Itzel GREWAL and I were able to calm patient down and she agreed to stay. She is not comfortable with a male nurse and being checked on frequently. Explained to her the protocol for checking on patients, but Itzel GREWAL will arrange for a female nurse to take care of her. I ordered Ativan 0.5 as needed agitation however patient is not agreeable.
[2021-11-10] MEDS: NA CHLORIDE 0.9% 1,000 ML IV SCH (22:35)
[2021-11-11 06:05] LABS: Absolute Lymphocytes (CBC) 1.5 K/uL (0.7-4.9); Hematocrit 39.9 % (36.0-45.0); Lymphocytes % 24.4 % (15.3-44.8); MPV 8.7 fL (7.6-11.3); RBC Red Blood Cell Count 4.27 M/uL (3.86-4.86)
[2021-11-11 06:25] LABS: Albumin 3.2 g/dL (3.4-5.0); Bilirubin Total 0.5 mg/dL (0.2-1.0); Potassium 3.2 mmol/L (3.5-5.1); Protein, Total 5.5 g/dL (6.4-8.2)
[2021-11-11] MEDS ORDERED: ENOXAPARIN 40 MG/0.4 ML SQ SCH (09:00)
[2021-11-11] MEDS: NA CHLORIDE 0.9% 1,000 ML IV SCH (11:42)
[2021-11-11] MEDS ORDERED: CEFTRIAXONE 1,000 MG in NA CHLORIDE 0.9% 50 ML IVPB SCH (18:00)
--- NOTE | 2021-11-11 19:17 | P.DS ---
Admission Date: 11/10/21 Discharge Date: 11/11/21 Primary Care Provider: Fatoumata Disposition: ROUTINE DISCHARGE Discharge Condition: FAIR Reason for Admission: AMS, Dysuria, Elevated Lactate - Problems (1) AMS (altered mental status) Current Visit: Yes Status: Acute Qualifiers: Altered mental status type: unspecified Qualified Code(s): R41.82 - Altered mental status, unspecified (2) Elevated lactic acid level Current Visit: Yes Status: Acute (3) UTI symptoms Current Visit: Yes Status: Acute (4) HTN (hypertension) Current Visit: Yes Status: Chronic Qualifiers: Hypertension type: primary hypertension Qualified Code(s): I10 - Essential (primary) hypertension Brief History of Present Illness: Patient is an 86-year-old female with hypertension who presented to the ED with complaints of increasing confusion. Per patient's granddaughter, patient was scared to sleep in her house alone last night (which is unusual for her) and called a friend to pick her up so she could stay with her. This morning, she noticed that she was acting confused and could not find her bathroom. Granddaughter states that she does have some baseline confusion but it was worse on the day of admission. Patient was also complaining of dysuria, urgency, suprapubic burning that has been occurring for about a month. Work-up in the ED revealed a lactic acid of 2.3 and elevated blood pressure. Head CT was negative and urine negative for UTI. Vital signs stable. She was given 1 L of fluid, hydralazine, and Rocephin. Patient placed on observation for further management. Hospital Course: Patient placed under observation on the medical floor and hydrated with IV fluid. UA suggest no UTI. Patient was calm, oriented x2 and interactive during my interaction this morning. Has symptoms likely related to sundowning. Daughter stated she has been experiencing confusion and hallucination which are worse at night. Patient given a dose of IV Rocephin in the ED which should be enough to treat any UTI. I discussed as needed antipsychotics to help reduce sundowning and also for insomnia. Daughter declined any medical treatment and stated they would resort to behavioral changes at this time. Patient is clinically stable for discharge. Vital Signs/Physical Exam: Temp Pulse Resp BP Pulse Ox 98.1 F 68 16 113/83 97 11/11/21 16:00 11/11/21 12:00 11/11/21 16:00 11/11/21 16:00 11/11/21 16:00 General: In no apparent distress, Oriented x2 HEENT: Mucous membr. moist/pink Neck: JVD not distended Respiratory: Clear to auscultation bilaterally, Normal air movement Cardiovascular: No edema, Regular rate/rhythm, Normal S1 S2 Gastrointestinal: Soft and benign, Non-distended, No tenderness Musculoskeletal: No swelling, No tenderness Integumentary: No rashes, No cyanosis Neurological: Normal strength at 5/5 x4 extr Laboratory Data at Discharge: WBC 6.2 K/uL (4.3-10.9) 11/11/21 05:08 Hgb 13.4 g/dL (12.0-15.0) 11/11/21 05:08 Hct 39.9 % (36.0-45.0) 11/11/21 05:08 Plt Count 170 K/uL (152-406) D 11/11/21 05:08 PT 10.0 SECONDS (9.5-12.5) 11/10/21 16:55 INR 0.91 11/10/21 16:55 APTT 18.4 SECONDS (24.3-36.9) L 11/10/21 16:55 Sodium 142 mmol/L (136-145) 11/11/21 05:08 Potassium 3.2 mmol/L (3.5-5.1) L 11/11/21 05:08 BUN 13 mg/dL (7-18) 11/11/21 05:08 Creatinine 0.76 mg/dL (0.55-1.3) 11/11/21 05:08 Glucose 100 mg/dL (74-106) 11/11/21 05:08 Total Bilirubin 0.5 mg/dL (0.2-1.0) 11/11/21 05:08 AST 14 U/L (15-37) L 11/11/21 05:08 ALT 14 U/L (12-78) 11/11/21 05:08 Alkaline Phosphatase 72 U/L (45-117) 11/11/21 05:08 Home Medications: NK [No Home Meds] 11/10/21 Diet: Regular Activity: Fall precautions Followup: Aidan Ham MD [Primary Care Provider] - 1-2 Weeks
[2021-11-11 19:56] VITALS: BP 158/82; TEMP 98.5
--- NOTE | 2021-11-12 09:36 | EKG ---
Test Date: 2021-11-10 Test Time: 15:02:52 Soft Tile Setter: ALP MEASUREMENT RESULTS: Intervals: Rate: 80 ME: 142 QRSD: 86 QT: 390 QTc: 449 [place]: P: 72 ME: 142 QRS: 73 T: 67 INTERPRETIVE STATEMENTS: Sinus rhythm with premature supraventricular complexes Otherwise normal ECG Compared to ECG 07/03/2016 11:28:21 Atrial premature complex(es) now present Electronically Signed On 11-12-21 09:32:11 CDT by Kai Galvez
== END 2021-11-11 19:50 | disposition home or self-care (01) ==
LOC: ER 13:55 → ERHOLD 19:14 → 2ND 19:50
PROVIDERS: ADMIT Internal Medicine; ATTEND Internal Medicine
DX: R41.82 Altered mental status, unspecified (principal); R30.0 Dysuria; R39.15 Urgency of urination; I10 Essential (primary) hypertension; R74.02 Elevation of levels of lactic acid dehydrogenase [LDH]; R20.8 Other disturbances of skin sensation; G47.00 Insomnia, unspecified; D64.9 Anemia, unspecified; Z79.01 Long term (current) use of anticoagulants; Z79.899 Other long term (current) drug therapy; Z88.0 Allergy status to penicillin; Z88.2 Allergy status to sulfonamides; Z88.6 Allergy status to analgesic agent; Z88.8 Allergy status to other drugs, medicaments and biological substances; Z20.822 Contact with and (suspected) exposure to COVID-19; Z90.710 Acquired absence of both cervix and uterus; Z82.49 Family history of ischemic heart disease and other diseases of the circulatory system; Z82.3 Family history of stroke; Z80.9 Family history of malignant neoplasm, unspecified
CPT/HCPCS: 93005; 87040 ×2; 87088; 85025 ×2; 87086; 36415; 82140; 85610; 83605 ×3; 85730; 80053 ×2; 70450; 71045; 99285; U0003; J0360; J1650; J7030 ×3; G0378 ×2; 81003; 81015

== ENCOUNTER 2022-11-29 10:07 | Inpatient (IN) | payer OTHER ==
--- OUTSIDE RECORDS SUMMARY | 2022-11-29 10:10 | XMS REPORT | Continuity of Care Document ---
:1935 Author Organization [facility] t Address [address] [facility] [address] [place] [id number] Care Team Providers Name Role Phone Amador Interiano MD Attending Clinician AMADOR INTERIANO Attending Clinician Unavailable Zoya Segundo Attending Clinician Fab Christy Admitting Clinician Payers Payer Name Policy Type Policy Number Effective Date Expiration Date S ource Problems Condition Condition Condition Status Onset Resolution Last Treating Co mments Source Name Details Category Date Date Treatment Clinician Date SUBDURAL SUBDURAL Diagnosis Active 2017-01-12 Memoria HEMORRHAGE HEMORRHAGE 6-17 21:59:00 l Active 00:00: Oswaldo 01/03/2017 00 [facility] Hip fx, Hip fx, Disease Active Univers right, right, 7-20 ity of closed, closed, 00:00: [place] initial initial 00 Medical encounter encounter Bran ch NONTRAUMAT NONTRAUMA Diagnosis Active 2017-01-12 Memoria IC TIC 21:59:00 l SUBDURAL SUBDURAL Martín n HEMORRHAGE HEMORRHAGE , UNSPEC , UNSPEC Active [facility] Hypertensi Hypertens Problem Resolve 2017-01-08 Memoria ve anisa d 01:05:58 l disorder, disorder, Herm beti systemic systemic arterial arterial (disorder) (disorder) Resolved Problem 01/08/2017 [facility] Vertigo Vertigo Problem Resolve 2017-01-08 M emoria (finding) (finding) d 01:05:58 l Resolved Roann Problem 01/08/2017 [facility] Allergies, Adverse Reactions, Alerts Allergy Allergy Status [...] 00 Medical Branch SULFA Drug Active N/V Univers (SULFONA Class 7-20 ity of MIDE 00:00: [place] ANTIBIOT 00 Medical ICS) Branch Benadryl Benadryl Active Memori a l Oswaldo codeine codeine Active Memoria l Oswaldo penicill penicill Active Memori a ins ins l Oswaldo sulfa sulfa Active Memoria drugs drugs l Roann Social History Social Habit Start Date Stop Date Quantity Comments Source Sex Assigned At [facility] Medical Branch Exposure to Not sure [facility] SARS-CoV-2 (event) Medica l Branch Social History 2017-01-04 2017-01-04 [facility] lorraine 05:27:09 05:27:09 Alcohol intake 2016-08-06 2016-08-06 [facility] 00:00:00 00:00:00 Medical Branch Smoking Status Start Date Stop Date Source Never smoker [facility] Medical Branch Medications Ordered Filled Start Stop Current Ordering Indication Dosage Frequency Signature Comments Components Source Medication Medication Date Date Medication? Clinician (SIG) Name Name DIPHENHYDRA 2019-07 Yes Take by Uni vers MINE HCL 2-17 mouth. ity of (BENADRYL 20:41: [place] ALLERGY 58 Medical ORAL) Branch codeine 15 2019-07 Yes 15mg Take 15 mg U nivers mg tablet 2-17 by mouth ity of 20:41: every 4 [place] 58 (four) Medical hours as Branch needed for Pain. AMINO 2019-07 Yes Take by Univers ACIDS/CALCI 2-17 mouth. ity of UM 20:41: [place] (CALCIMIN-3 58 Medical 00 ORAL) Branch DIPHENHYDRA 2019-07 Yes Take by Uni vers MINE HCL 2-17 mouth. ity of (BENADRYL 20:41: [place] ALLERGY 58 Medical ORAL) Branch codeine 15 2019-07 Yes 15mg Take 15 mg U nivers mg tablet 2-17 by mouth ity of 20:41: every 4 [place] 58 (four) Medical hours as Branch needed for Pain. AMINO 2019-07 Yes Take by Univers ACIDS/CALCI 2-17 mouth. ity of UM 20:41: [place] (CALCIMIN-3 58 Medical 00 ORAL) Branch DIPHENHYDRA 2019-07 Yes Take by Uni vers MINE HCL 2-17 mouth. ity of (BENADRYL 20:41: [place] ALLERGY 58 Medical ORAL) Branch codeine 15 2019-07 Yes 15mg Take 15 mg U nivers mg tablet 2-17 by mouth ity of 20:41: every 4 [place] [id number] (four) Medical hours as Branch needed for Pain. AMINO 2019-07 Yes Take by Univers ACIDS/CALCI 2-17 mouth. ity of UM 20:41: [place] (CALCIMIN-3 58 Medical 00 ORAL) Branch Levetiracet No Notes: Manny israel am 500 MG 6-20 (Same l Oral Tablet 02:00: as:Keppra) Oswaldo [Keppra] Acetaminoph Yes 325 mg = 1 Memoria en 325 MG 6-19 cap, PO, l Oral 14:39: TID, PRN Oswaldo Capsule 00 Pain Score [Tylenol] 7-10, X 3 day, # 9 cap, 0 Refill(s) Levetiracet Yes 500 mg, Mem oria am 500 MG 6-19 PO, Q12H, l Oral Tablet 14:09: # 12 tab, H ermann [Keppra] 00 0 Refill(s) Hydrochloro No Notes: Manny israel thiazide 6-18 (Same as: l 19:13: Hydrodiuri Roann 00 l). Give with food. Hydrochloro Yes 12.5 mg, Me moria thiazide 6-18 PO, Daily, l 19:12: 0 Roann 00 Refill(s) Levetiracet No Notes: Manny israel am 500 MG 6-18 (Same l Oral Tablet 16:21: as:Keppra) Roann [Keppra] 00 Hydralazine No Notes: Manny israel 6-18 (Same as: l 14:20: Apresoline ) Push over 5 minutes Saline No Notes: Memoria Flush 0.9% 6-18 (Same as: l 14:00: BD Roann 00 Posiflush) Acetaminoph No Notes: Do M emoria en 18 not exceed l 07:21: 4 gm/day. (Same as: Tylenol) Saline No Notes: Memoria Flush 0.9% 01-04 (Same as: l 07:01: BD Posiflush) meclizine Yes TK 1 T PO Uni vers 25 mg 1-05 Q 8 HOURS ity of tablet 00:00: PRN. [place] [facility] meclizine Yes TK 1 T PO Uni vers 25 mg 1-05 Q 8 HOURS ity of tablet 00:00: PRN. [place] [facility] meclizine Yes TK 1 T PO Uni vers 25 mg 1-05 Q 8 HOURS ity of tablet 00:00: PRN. [address] hydroCHLORO 2015-07 Yes TK 1 T PO U nivers thiazide 2-19 QD. ity of 12.5 mg 00:00: [place] tablet [facility] hydroCHLORO 2015-07 Yes TK 1 T PO U nivers thiazide 2-19 QD. ity of 12.5 mg 00:00: [place] tablet [facility] hydroCHLORO 2015-07 Yes TK 1 T PO U nivers thiazide 2-19 QD. ity of 12.5 mg 00:00: [facility] Yes TK 1 C PO Un leelee 100 mg 7-11 BID. ity of capsule 00:00: [address] ELIQUIS 2.5 Yes TK 1 Univer s mg tablet 7-11 TABLET BY ity o f 00:00: M[address]TH BID [address] Yes TK 1 C PO Un leelee 100 mg 7-11 BID. ity of capsule 00:00: [place] [facility] ELIQUIS 2.5 Yes TK 1 Univer s mg tablet 7-11 TABLET BY ity o f 00:00: [facility] [address] [facility] TK 1 C PO Un leelee 100 mg 7-11 BID. ity of capsule 00:00: [address] ELIQUIS 2.5 Yes TK 1 Univer s mg tablet 7-11 TABLET BY ity o f 00:00: MOUTH BID [address] Vital Signs Vital Name Observation Time Observation Value Comments Source Systolic blood 2020-07-05 20:46:00 173 mm[Hg] Univer sity of pressure [facility] Diastolic blood 2020-07-05 20:46:00 81 mm[Hg] Unive rsity of [facility] Heart rate 2020-07-05 20:46:00 77 /min [facility] Body height 2020-07-05 20:40:00 166.4 cm [facility] Body weight 2020-07-05 20:40:00 64.864 kg [facility] BMI 2020-07-05 20:40:00 23.43 kg/m2 [facility] Systolic (mm Hg) 2017-01-05 12:52:00 Manny rial Roann Diastolic (mm Hg) 2017-01-05 12:52:00 Mem orial Oswaldo Temperature Oral (F) 2017-01-05 12:52:00 98.7 F [facility] Heart Rate 2017-01-05 12:52:00 [facility] Respitory Rate 2017-01-05 12:52:00 Memori al Oswaldo Systolic (mm Hg) 2017-01-05 10:11:00 Manny rial Roann Diastolic (mm Hg) 2017-01-05 10:11:00 Mem orial Roann Temperature Oral (F) 2017-01-05 10:11:00 98.8 F [facility]ann Respitory Rate 2017-01-05 10:11:00 Memori al Roann Respitory Rate 2017-01-05 05:00:00 Memori al Oswaldo Temperature Oral (F) 2017-01-05 05:00:00 98.9 F [facility] Oswaldo Systolic (mm Hg) 2017-01-05 05:00:00 Manny rial Oswaldo Diastolic (mm Hg) 2017-01-05 05:00:00 Mem orial Roann Weight 2017-01-04 23:53:00 [facility]ann Height 2017-01-04 23:53:00 157.48 cm [facility] Roann BMI Calculated 2017-01-04 23:53:00 Memori al Roann Heart Rate 2017-01-04 16:30:00 [facility]ann Heart Rate 2017-01-04 12:52:00 Carl Chacon Weight 2017-01-04 04:49:00 Carl Chacon BMI Calculated 2017-01-04 04:49:00 Jerson gerber Oswaldo Height 2017-01-04 04:49:00 165.1 cm Carl Chacon Procedures Procedure Date / Time Performed Performing Clinician Karl e Hysterectomy [facility] Oswaldo Hip replacement Carl Chacon Encounters Start End Encounter Admission Attending Care Care Encounter Source Date/Time Date/Time Type Type Clinicians Facility Department ID 2020-07-05 2020-07-05 [facility] [id number] Univers 14:49:43 23:59:00 Encounter Amador Kang [facility] [id number] ity of Surgical [id number] [place] as Specialti [id number] Ut dical es 809 [facility] 2020-07-05 2020-07-05 Office [facility] [id number] Univers 14:15:11 15:06:40 Visit Amador Kang [facility] [id number] it y of Surgical [id number] [place] as Specialti [id number] Ut dical es 198 [facility] 2020-07-05 2020-07-05 [facility] [id number] Univers 14:30:00 [facility]:30[facility] 2017-01-05 Observatio nullFlavo [facility] [id number] Memoria 04:38:00 17:30:00 n argelia Chacon 66 l [facility] 2017-01-03 2017-01-05 Outpatient Segundo, [facility] [id number] 23:38:00 12:30:00 Zoya Jeter 66 Padmini Results Test Description Test Time Test Comments Results Result Comments Source ELECTROLYTES 2017-01-05 10:06:00 Test Item Value Reference Range Interpretation Comme nts AGAP (test code = AGAP) 10.7 10.0-20.0 [id number] 10:06:00 Test Item Value Reference Range Interpretation Comments eGFR (test code = eGFR) 85 [facility] CenterPxrfwewDYCGRCRTEQNE7884-52-16 10:06:00 Test Item Value Reference Range Interpretation Comments BUN (test code = BUN) 18 7-22 [facility] CenterMwpkuebWVCUXWQJCHNQ1074-81-97 10:06:00 Test Item Value Reference Range Interpretation Comments Glucose Lvl (test code = Glucose Lvl) 100 70-99 [facility] CenterXzfymdkOZVTABDCGNZD2580-35-02 10:06:00 Test Item Value Reference Range Interpretation Comments Creatinine Lvl (test code = Creatinine 0.60 0.50-1.40 Lvl) [facility] CenterMbdnxwjPRJGBQUZFBSA9693-20-48 10:06:00 Test Item Value Reference Range Interpretation Comments Sodium Lvl (test code = Sodium Lvl) 140 135-145 [facility] CenterCutmdvhGVHRUARGFXVH7213-62-05 10:06:00 Test Item Value Reference Range Interpretation Comments Potassium Lvl (test code = Potassium 3.7 3.5-5.1 Lvl) [facility] CenterUdhranfKBTONRZCSRLH1003-35-06 10:06:00 Test Item Value Reference Range Interpretation Comments Chloride Lvl (test code = Chloride Lvl) 106 95-109 [facility] CenterBynurtkKRXFRTNNLJNY0307-87-40 10:06:00 Test Item Value Reference Range Interpretation Comments CO2 (test code = CO2) 27 24-32 [facility] CenterZrxfcioOKZIEMWAFELE3058-01-98 10:06:00 Test Item Value Reference Range Interpretation Comments Calcium Lvl (test code = Calcium Lvl) 8.5 8.5-10.5 [facility]RqgdkwiOKFBCOGHCO5886-38-60 10:06:00 Test Item Value Reference Range Interpretation Comments MCHC (test code = MCHC) 34.1 32.0-36.0 [facility] HospitalWaquhvcNUXHQFUHHW3159-14-90 10:06:00 Test Item Value Reference Range Interpretation Comments MCV (test code = MCV) 91.7 80.0-98.0 [facility] HospitalZrvzvagQQOFSOOJRN5710-66-39 10:06:00 Test Item Value Reference Range Interpretation Comments MCH (test code = MCH) 31.3 pg 27.0-31.0 [facility] HospitalRgdkepbPIIURUPISX9050-67-50 10:06:00 Test Item Value Reference Range Interpretation Comments Hct (test code = Hct) 39.7 36.0-48.0 [facility] HospitalVuzkotxMKKTKFBLEI4942-40-86 10:06:00 Test Item Value Reference Range Interpretation Comments RBC (test code = RBC) 4.33 4.20-5.40 [facility] HospitalGjrpkdwYVGGGIIEJU6901-52-26 10:06:00 Test Item Value Reference Range Interpretation Comments Hgb (test code = Hgb) 13.5 12.0-16.0 [facility] HospitalQpiidjfTMRFBMEXPU5743-70-11 10:06:00 Test Item Value Reference Range Interpretation Comments WBC (test code = WBC) 7.6 3.7-10.4 [facility] HospitalKcadczcEIANEJBTEZ8293-09-60 10:06:00 Test Item Value Reference Range Interpretation Comments MPV (test code = MPV) 9.1 7.4-10.4 [facility] HospitalVffjjcqJOOXORKGEL4706-16-78 10:06:00 Test Item Value Reference Range Interpretation Comments RDW (test code = RDW) 13.1 11.5-14.5 [facility] HospitalQjkxlpzLXPURMHGHP4995-84-97 10:06:00 Test Item Value Reference Range Interpretation Comments Platelet (test code = Platelet) 136 133-450 [facility] HospitalBaizdmyMWHRYXGPTA2811-15-64 10:06:00 Test Item Value Reference Range Interpretation Comments Monocytes # (test code 0.8 See_Comment [Aut omated message] The = Monocytes #) system which generated this result tra nsmitted reference range : <=0.8. The reference r libby was not used to int erpret this result as normal/abnormal . [facility] HospitalIqknrmnOZCZCPAPLJ6544-06-31 10:06:00 Test Item Value Reference Range Interpretation Comments Eosinophils # (test code 0.1 See_Comment [A utomated message] The = Eosinophils #) system whic h generated this result tra nsmitted reference range : <=0.5. The reference r libby was not used to int erpret this result as normal/abnormal . [facility] HospitalZfcymwqVTMXWQNXIK6103-20-13 10:06:00 Test Item Value Reference Range Interpretation Comments Segs-Bands # (test code = Segs-Bands #) 5.2 1.5-8.1 [facility] HospitalApbfdbpRAINYFKWLN0170-85-37 10:06:00 Test Item Value Reference Range Interpretation Comments Lymphocytes # (test code = Lymphocytes 1.5 1.0-5.5 #) [facility] HospitalOieymhhSTLFFTBRXP9247-09-11 10:06:00 Test Item Value Reference Range Interpretation Comments Basophils (test code = 0.3 See_Comment [Aut omated message] The Basophils) system which ge nerated this result tra nsmitted reference range : <=1.0. The reference r libby was not used to int erpret this result as normal/abnormal . [facility] HospitalWumplopLEGRQJFFGP4399-28-91 10:06:00 Test Item Value Reference Range Interpretation Comments Monocytes (test code = Monocytes) 10.1 2.0-12.0 [facility] HospitalRpmbqsuCHMFJKUAVA8319-66-78 10:06:00 Test Item Value Reference Range Interpretation Comments Eosinophils (test code = 1.9 See_Comment [A utomated message] The Eosinophils) system which ge nerated this result tra nsmitted reference range : <=4.0. The reference r libby was not used to int erpret this result as normal/abnormal . [facility] HospitalCberzsoYOQMIUKICN4343-23-85 10:06:00 Test Item Value Reference Range Interpretation Comments Segs (test code = Segs) 68.0 45.0-75.0 [facility] H[id number] 10:06:00 Test Item Value Reference Range Interpretation Comments Lymphocytes (test code = Lymphocytes) 19.7 20.0-40.0 [facility]2017-06-18 10:30:00 Test Item Value Reference Range Interpretation Comments Glucose Lvl (test code = Glucose Lvl) 97 70-99 [facility]2017-06-18 10:30:00 Test Item Value Reference Range Interpretation Comments Chloride Lvl (test code = Chloride Lvl) 106 95-109 [facility]2017-06-18 10:30:00 Test Item Value Reference Range Interpretation Comments Potassium Lvl (test code = Potassium 3.6 3.5-5.1 Lvl) [facility]2017-06-18 10:30:00 Test Item Value Reference Range Interpretation Comments Calcium Lvl (test code = Calcium Lvl) 8.6 8.5-10.5 [facility]2017-06-18 10:30:00 Test Item Value Reference Range Interpretation Comments CO2 (test code = CO2) 26 24-32 [facility]2017-06-18 10:30:00 Test Item Value Reference Range Interpretation Comments AGAP (test code = AGAP) 11.6 10.0-20.0 [facility]2017-06-18 10:30:00 Test Item Value Reference Range Interpretation Comments Bili Indirect Unable to See_Comment [Automated (test code = Bili Calculate message] T he system Indirect) which generated this result transmitted reference range : <=1.0. The reference range was not used to interpret this result as normal/abnormal . [facility]2017-06-18 10:30:00 Test Item Value Reference Range Interpretation Comments Bili Total (test code = Bili Total) 0.5 0.2-1.3 [facility]2017-06-18 10:30:00 Test Item Value Reference Range Interpretation Comments Bili Direct (test code no gt See_Comment [Aut omated message] The = Bili Direct) system which generated this result tra nsmitted reference range : <=0.3. The reference r libby was not used to int erpret this result as bakari l/abnormal. [facility] [place] [facility] [id number] 10:30:00 Test Item Value Reference Range Interpretation Comments ALT (test code = ALT) 16 See_Comment [Auto mated message] The system which ge nerated this result transmit fernando reference range : <=65. The reference range was not used to interpr et this result as bakari l/abnormal. [facility] [place] [facility] [id number] 10:30:00 Test Item Value Reference Range Interpretation Comments Alk Phos (test code = Alk Phos) 87 39-136 [facility] [place] [facility] [id number] 10:30:00 Test Item Value Reference Range Interpretation Comments AST (test code = AST) 23 See_Comment [Auto mated message] The system which ge nerated this result transmit fernando reference range : <=37. The reference range was not used to interpr et this result as bakari l/abnormal. [facility] [place] [facility] [id number] 10:30:00 Test Item Value Reference Range Interpretation Comments A/G Ratio (test code = A/G Ratio) 1.3 0.7-1.6 [facility] [place] [facility] [id number] 10:30:00 Test Item Value Reference Range Interpretation Comments Albumin Lvl (test code = Albumin Lvl) 3.3 3.5-5.0 [facility] [place] [facility] [id number] 10:30:00 Test Item Value Reference Range Interpretation Comments Globulin (test code = Globulin) 2.6 2.7-4.2 [facility] [place] [facility] [id number] 10:30:00 Test Item Value Reference Range Interpretation Comments Total Protein (test code = Total 5.9 6.4-8.4 Protein) [facility] [place] [facility] CampusIoiefzcEXAZFT8355-75-94 10:30:00 Test Item Value Reference Range Interpretation Comments Trig (test code = Trig) 106 [facility] [place] [facility] CampusTxlrhdyBXDFDW3292-65-91 10:30:00 Test Item Value Reference Range Interpretation Comments HDL (test code = HDL) 68 [facility]VxwjkikAEILYB6026-56-46 10:30:00 Test Item Value Reference Range Interpretation Comments Chol (test code = Chol) 149 [facility] [place] [facility] CampusOkbzhaoBXUTCQ7639-19-84 10:30:00 Test Item Value Reference Range Interpretation Comments LDL (Calculated) (test code = LDL 60 (Calculated)) [facility] [place] [facility] CampusPrhkarwSPLANA7449-35-49 10:30:00 Test Item Value Reference Range Interpretation Comments CHD Risk (test code = CHD Risk) 2.19 3.90-5.80 [facility] [place] [facility] CampusMfaswcgUCLWGI0297-13-51 10:30:00 Test Item Value Reference Range Interpretation Comments VLDL (test code = VLDL) 21 [facility] [id number] 10:30:00 Test Item Value Reference Range Interpretation Comments Hgb A1C (test code = Hgb A1C) 5.5 [facility] [place] [facility] [id number] 10:30:00 Test Item Value Reference Range Interpretation Comments eGFR (test code = eGFR) 85 [facility] [id number] 10:30:00 Test Item Value Reference Range Interpretation Comments Sodium Lvl (test code = Sodium Lvl) 140 135-145 [facility] [place] [facility] [id number] 10:30:00 Test Item Value Reference Range Interpretation Comments Creatinine Lvl (test code = Creatinine 0.60 0.50-1.40 Lvl) [facility] [id number] 10:30:00 Test Item Value Reference Range Interpretation Comments BUN (test code = BUN) 17 - [facility]
--- NOTE | 2022-11-29 10:33 | RAD REPORT ---
EXAM DESCRIPTION: CT - Ct Stroke Brain Wo Cont - 11/29/2022 10:25 am CLINICAL HISTORY: STROKE ALERT COMPARISON: Head Brain Wo Cont dated 11/10/2021; Head Brain Wo Cont dated 09/08/2018 TECHNIQUE: All CT scans are performed using dose optimization technique as appropriate and may inclu de automated exposure control or mA/KV adjustment according to patient size. FINDINGS: No intracranial hemorrhage, hydrocephalus or extra-axial fluid collection.No areas of brai n edema or evidence of midline shift. Mild chronic small vessel ischemic changes. Cerebral atrophy. The paranasal sinuses and mastoids are clear. The calvarium is intact. IMPRESSION: No acute intracranial abnormality. Communicated to Dr. Lux by Dr. Jones at 1029 on 11/29/22
[2022-11-29] MEDS ORDERED: METOPROLOL TARTRATE 5 MG/5 ML INJ IV ONE (10:34)
[2022-11-29 11:01] LABS: Hematocrit 43.9 % (36.0-45.0); Lymphocytes % 20.6 % (15.3-44.8); MCV 95.3 fL (80-100); MPV 8.7 fL (7.6-11.3)
[2022-11-29 11:23] LABS: Protime INR 1.07
[2022-11-29 11:28] LABS: Troponin High Sensitivity 11.4 pg/mL (<58.9)
[2022-11-29] MEDS ORDERED: NA CHLORIDE 0.9% 500 ML ONE (11:32)
[2022-11-29 11:35] LABS: Thyroid Stimulating Hormone 5.15 uIU/mL (0.358-3.740)
--- NOTE | 2022-11-29 11:43 | RAD REPORT ---
EXAM DESCRIPTION: RAD - Chest Single View - 11/29/2022 11:27 am CLINICAL HISTORY: CONGESTION COMPARISON: Chest Single View dated 11/10/2021; Chest Single View dated 01/03/2017; Chest Pa And Lat ( 2 Views) dated 07/24/2016; Chest Single View dated 07/03/2016 FINDINGS: Lines: None. Lungs: Diffuse prominence of the pulmonary interstitium. Pleural: Small bilateral effusions . Cardiac: Probable cardiomegaly. Mediastinum: Within normal limits. Bones: No acute fractures. Other: None IMPRESSION: Interstitial edema with pleural effusions and likely underlying atelectasis.
--- NOTE | 2022-11-29 11:53 | ER ---
Nurse's Notes [facility] Name: Radha Encarnacion Age: 87 yrs Sex: Female : 1935 Arrival Date: 11/29/2022 Time: 10:07 Bed 19 Private MD: Diagnosis: Unspecified atrial fibrillation;Acute systolic (congestive) heart failure;Other acute kidney failure Presentation: 11/29 10:19 Chief complaint: EMS states: lethargic x2days, high heart rate in 140s reported by EMS. eh3 C/o left elbow pain. Pt lives at [facility]. Coronavirus screen: Vaccine status: Patient reports receiving the 2nd dose of the covid vaccine. Ebola Screen: No symptoms or risks identified at this time. Initial Sepsis Screen: Does the patient meet any 2 criteria? HR > 90 bpm. Does the patient have a suspected source of infection? No. Patient's initial sepsis screen is negative. Risk Assessment: Do you want to hurt yourself or someone else? Patient reports no desire to harm self or others. Onset of symptoms was November 29, 2022. 10:19 Method Of Arrival: EMS: [facility] 3 10:19 Acuity: SANTI 2 eh3 Triage Assessment: 10:22 General: Appears in no apparent distress. uncomfortable, Behavior is calm, cooperative. eh3 Pain: Denies pain. EENT: No deficits noted. Neuro: Level of Consciousness is awake, alert, obeys commands, Oriented to person. Cardiovascular: Capillary refill < 3 seconds Patient's skin is warm and dry. Edema is 2+ to left midcalf, left ankle, left foot, right midcalf, right ankle and right foot. Cardiovascular: Rhythm is atrial fibrillation with rapid ventricular response. Respiratory: Airway is patent Trachea midline Respiratory effort is even, unlabored, Respiratory pattern is regular, symmetrical. GI: Abdomen is round non-distended, Reports upper abdominal pain. : No signs and/or symptoms were reported regarding the genitourinary system. Derm: Skin is pink, warm \\T\\ dry. Musculoskeletal: Circulation, motion, and sensation intact. Historical: - Allergies: 10:22 Benadryl; very senstive to it, makes her very anxious and wound up; eh3 10:22 CEPHALOSPORINS; eh3 10:22 codeine sulfate; eh3 10:22 PENICILLINS; eh3 10:22 Sulfa (Sulfonamide Antibiotics); eh3 - PMHx: 10:22 Hypertension; R hip broken in fall- hip has metal humberto.; Vertigo; eh3 - Immunization history:: Adult Immunizations up to date. - Social history:: Smoking status: unknown. Screenin:24 [facility] ED Fall Risk Assessment (Adult) Score/Fall Risk Level 3 or more points = High eh3 Risk Oriented to surroundings, Maintained a safe environment, Educated pt \\T\\ family on fall prevention, incl call for assistance when getting out of bed, Assessed \\T\\ reinforced patient's understanding of fall precautions, Provided non-skid footwear, Hourly rounding (assess needs \\T\\ fall precautionary measures) done, Used ambulatory aids as needed (educated on \\T\\ assisted with), Used gait belt as appropriate. Abuse screen: Denies threats or abuse. Denies injuries from another. Nutritional screening: No deficits noted. Tuberculosis screening: No symptoms or risk factors identified. Assessment: 10:24 Reassessment: No changes from previously documented assessment. See triage assessment. eh3 11:00 Reassessment: Patient appears in no apparent distress at this time. Patient and/or 3 family updated on plan of care and expected duration. Pain level reassessed. Patient is alert, oriented x 3, equal unlabored respirations, skin warm/dry/pink. 12:00 Reassessment: Patient appears in no apparent distress at this time. Patient and/or 3 family updated on plan of care and expected duration. Pain level reassessed. Patient is alert, oriented x 3, equal unlabored respirations, skin warm/dry/pink. 13:00 Reassessment: Patient appears in no apparent distress at this time. Patient and/or 3 family updated on plan of care and expected duration. Pain level reassessed. Patient is alert, oriented x 3, equal unlabored respirations, skin warm/dry/pink. 13:44 Reassessment: Unsuccessful attempt to call report to 2nd floor, pocket secretary assembler stated, "We 3 weren't aware we were getting another patient". Vital Signs: 10:19 BP 121 / 101; Pulse 135; Resp 19; Temp 98.4(O); Pulse Ox 97% on R/A; Weight 54.43 kg; 3 Height 5 ft. 4 in. ; 10:59 BP 106 / 73; Pulse 104; Resp 19 S; Pulse Ox 100% on R/A; kc6 11:30 BP 91 / 78; Pulse 92; Resp 17; Pulse Ox 100% on R/A; eh3 12:00 BP 110 / 99; Pulse 103; Resp 20; Pulse Ox 98% on R/A; eh3 12:30 BP 115 / 90; Pulse 113; Resp 20; Pulse Ox 99% on R/A; eh3 13:00 BP 102 / 70; Pulse 122; Resp 20; Pulse Ox 96% on R/A; eh3 10:19 Body Mass Index 20.60 (54.43 kg, 162.56 cm) eh3 ED Course: 10:12 Patient arrived in ED. eb 10:12 Diogo Lux MD is Attending Physician. bs3 10:17 Amna Rodriges, CARMINA is Primary Nurse. eh3 10:22 Triage completed. eh3 10:22 Arm band placed on. eh3 10:24 Patient has correct armband on for positive identification. Bed in low position. Call eh3 light in reach. Side rails up X2. Client placed on continuous cardiac and pulse oximetry monitoring. NIBP monitoring applied. Warm blanket given. 10:27 CT Stroke Brain w/o Contrast In Process Unspecified. EDMS 10:42 Inserted saline lock: 22 gauge in left antecubital area, using aseptic technique. Blood eh3 collected. 11:29 XRAY Chest (1 view) In Process Unspecified. EDMS 11:52 Uche Webb MD is Hospitalizing Provider. bs3 15:00 No provider procedures requiring assistance completed. Patient admitted, IV remains in eh3 place. Administered Medications: 10:45 Drug: Metoprolol IVP 5 mg Route: IVP; Site: left antecubital; eh3 10:52 Drug: Metoprolol IVP 5 mg Route: IVP; Site: left antecubital; eh3 10:58 Drug: Metoprolol IVP 5 mg Route: IVP; Site: left antecubital; eh3 12:00 Follow up: Response: No adverse reaction eh3 12:30 Drug: Metoprolol PO 25 mg Route: PO; eh3 13:30 Follow up: Response: No adverse reaction eh3 12:30 Drug: Furosemide IVP 60 mg Route: IVP; Site: left antecubital; 3 13:30 Follow up: Response: No adverse reaction eh3 Medication: 15:00 VIS not applicable for this client. eh3 Outcome: 11:53 Decision to Hospitalize by Provider. bs3 15:00 Admitted to Med/surg accompanied by tech, via stretcher. eh3 15:00 Condition: stable 15:00 Instructed on the need for admit. 15:03 Patient left the ED. Signatures: Dispatcher [employer] EDMS Ting Burns RN RN Emilia Cummins Erin, RN RN eh3 Kira Sprague RN RN kc6 Diogo Lux MD MD bs3 Corrections: (The following items were deleted from the chart) 10:39 10:19 Chief complaint: EMS states: lethargic x2days, high heart rate in 140s reported eh3 by EMS eh3
--- NOTE | 2022-11-29 11:53 | EDPHYS ---
Physician Documentation [facility] Name: Radha Encarnacion Age: 87 yrs Sex: Female : 1935 Arrival Date: 11/29/2022 Time: 10:07 Bed 19 Private MD: ED Physician Diogo Lux HPI: 11/29 10:17 This 87 yrs old Female presents to ER via Unassigned with complaints of afib bs3 from group home w new heart failure. 10:17 87-year-old female history of hypertension, dementia brought in from group home for bs3 A-fib per the chart and x-ray was ordered 2 days ago which showed cardiomegaly and congestion and today EMS was called for report of a fall but when EMS got there they stated that the patient has new A-fib and is being sent to the hospital for this history is limited secondary to her dementia but she notes feeling tired for the past couple days denies fevers or chills chest pain shortness of breath she does complain of back pain no numbness tingling or weakness in her extremities. Historical: - Allergies: 10:22 Benadryl; very senstive to it, makes her very anxious and wound up; eh3 10:22 CEPHALOSPORINS; eh3 10:22 codeine sulfate; eh3 10:22 PENICILLINS; eh3 10:22 Sulfa (Sulfonamide Antibiotics); eh3 - PMHx: 10:22 Hypertension; R hip broken in fall- hip has metal humberto.; Vertigo; eh3 - Immunization history:: Adult Immunizations up to date. - Social history:: Smoking status: unknown. ROS: 10:17 Constitutional: Negative for fever, chills bs3 10:17 All other systems are negative. Exam: 10:17 Constitutional: This is a well developed, well nourished patient who is awake, alert, bs3 and in no acute distress. Head/Face: Normocephalic, atraumatic. Eyes: Pupils equal round and reactive to light, extra-ocular motions intact. Lids and lashes normal. ENT: mmm, no posterior phyarngeal erythema Neck: Trachea midline, no thyromegaly, no neck stiffness Chest/axilla: Normal chest wall appearance and motion. Nontender with no deformity. No lesions are appreciated. Cardiovascular: tachycardic, irregular, no murmur 10:[address] elevation or depression qtc 381 as inter by myself Vital Signs: 10:19 BP 121 / 101; Pulse 135; Resp 19; Temp 98.4(O); Pulse Ox 97% on R/A; Weight 54.43 kg; eh3 Height 5 ft. 4 in. ; 10:59 BP 106 / 73; Pulse 104; Resp 19 S; Pulse Ox 100% on R/A; kc6 11:30 BP 91 / 78; Pulse 92; Resp 17; Pulse Ox 100% on R/A; eh3 12:00 BP 110 / 99; Pulse 103; Resp 20; Pulse Ox 98% on R/A; 3 12:30 BP 115 / 90; Pulse 113; Resp 20; Pulse Ox 99% on R/A; eh3 13:00 BP 102 / 70; Pulse 122; Resp 20; Pulse Ox 96% on R/A; eh3 10:19 Body Mass Index 20.60 (54.43 kg, 162.56 cm) 3 MDM: 10:12 Patient medically screened. 3 11:51 Data reviewed: vital signs, nurses notes. ED course: Given her generalized weakness bs3 will evaluate for etiology we will do serial exams and reassess discussed with daughter at bedside who notes that patient is DNR she received metoprolol x2 doses with improvement in heart rate she did have slight hypotension which responded to gentle IV fluid her x-ray as interpreted by myself is concerning for fluid overload will give Lasix will admit. 11/29 10:13 Order name: Basic Metabolic Panel; Complete Time: 11:49 [facility] 11/29 10:13 Order name: CBC with Diff; Complete Time: 11:41 [facility] 11/29 10:13 Order name: NT PRO-BNP; Complete Time: 11:49 [facility] 11/29 10:13 Order name: Troponin HS; Complete Time: 11:49 [facility] 11/29 10:13 Order name: Protime (+inr); Complete Time: 11:41 [facility] 11/29 10:13 Order name: Ptt, Activated; Complete Time: 11:41 [facility] 11/29 10:13 Order name: TSH; Complete Time: 11:49 [facility] 11/29 10:17 Order name: Urinalysis w/ reflexes [facility] 11/29 11:04 Order name: Glucose, Ancillary Testing; Complete Time: 11:41 EDMS 11/29 11:37 Order name: T4 Free; Complete Time: 11:49 EDMS 11/29 12:15 Order name: CBC with Automated Diff EDMS 11/29 12:15 Order name: CBC with Automated Diff EDMS 11/29 12:15 Order name: Comprehensive Metabolic Panel EDMS 11/29 12:15 Order name: Comprehensive Metabolic Panel EDMS 11/29 12:19 Order name: Basic Metabolic Panel EDMS 11/29 12:19 Order name: Basic Metabolic Panel EDMS 11/29 12:19 Order name: Basic Metabolic Panel EDMS 11/29 10:13 Order name: XRAY Chest (1 view); Complete Time: 11:46 bs3 11/29 10:13 Order name: CT Stroke Brain w/o Contrast; Complete Time: 11:41 bs3 11/29 10:13 Order name: EKG; Complete Time: 10:14 bs3 11/29 12:15 Order name: Full Liquid EDMS 11/29 10:13 Order name: Cardiac monitoring; Complete Time: 10:18 bs3 11/29 10:13 Order name: EKG - Nurse/Tech; Complete Time: 10:18 bs3 11/29 10:13 Order name: IV Saline Lock; Complete Time: 10:59 bs3 11/29 10:13 Order name: Labs collected and sent; Complete Time: 10:59 bs3 11/29 10:13 Order name: O2 Per Protocol; Complete Time: 10:18 bs3 11/29 10:13 Order name: O2 Sat Monitoring; Complete Time: 10:18 bs3 11/29 10:13 Order name: Accucheck; Complete Time: 10:55 bs3 11/29 10:13 Order name: NPO; Complete Time: 10:17 bs3 11/29 10:13 Order name: Stroke Swallow Screen; Complete Time: 10:58 bs3 Administered Medications: 10:45 Drug: Metoprolol IVP 5 mg Route: IVP; Site: left antecubital; 3 10:52 Drug: Metoprolol IVP 5 mg Route: IVP; Site: left antecubital; eh3 10:58 Drug: Metoprolol IVP 5 mg Route: IVP; Site: left antecubital; eh3 12:00 Follow up: Response: No adverse reaction eh3 12:30 Drug: Metoprolol PO 25 mg Route: PO; eh3 13:30 Follow up: Response: No adverse reaction eh3 12:30 Drug: Furosemide IVP 60 mg Route: IVP; Site: left antecubital; eh3 13:30 Follow up: Response: No adverse reaction eh3 Disposition Summary: 11/29/22 11:53 Hospitalization Ordered Hospitalization Status: Inpatient Admission bs3 Provider: Uche Webb bs3 Location: Telemetry/MedSurg (Inpatient) bs3 Condition: Stable bs3 Problem: new bs3 Symptoms: have improved bs3 Bed/Room Type: Standard bs3 Room Assignment: [facility](11/29/22 13:26) eb Diagnosis - Unspecified atrial fibrillation bs3 - Acute systolic (congestive) heart failure bs3 - Other acute kidney failure bs3 Forms: - Medication Reconciliation Form bs3 - SBAR form bs3 Signatures: Dispatcher [employer] EDEmilia Carpenter Erin, RN RN 3 Diogo Lux MD MD bs3 Corrections: (The following items were deleted from the chart) 13: 11:53 bs3 eb
[2022-11-29] MEDS: FUROSEMIDE 40 MG/4 ML VIAL IV SCH (12:15)
[2022-11-29] MEDS: SPIRONOLACTONE 25 MG TABLET PO SCH ×2 (12:15→21:10)
[2022-11-29] MEDS: ASPIRIN EC 81 MG TAB PO SCH (12:17)
[2022-11-29] MEDS ORDERED: FUROSEMIDE 20 MG/ 2ML VIAL ONE (12:30)
[2022-11-29] MEDS ORDERED: FUROSEMIDE 40 MG/4 ML VIAL ONE (12:30)
[2022-11-29] MEDS ORDERED: METOPROLOL TAR 25 MG TAB ONE ×2 (12:31→14:46)
[2022-11-29] MEDS: METOPROLOL XL 25 MG TAB PO SCH ×2 (13:00→21:10)
[2022-11-29 13:32] LABS: Specific Gravity 1.009 (1.005-1.030); Urine Bacteria None Seen /HPF (<20); Urine Bilirubin NEGATIVE (Negative); Urine Blood Negative (Negative); Urine Clarity Clear (Clear); Urine Color Colorless (Yellow); Urine Glucose NEGATIVE (Negative); Urine Mucus Slight /HPF (None Seen); Urine Protein NEGATIVE (Negative); Urine RBC <5 /HPF (None Seen); Urine Urobilinogen Normal (Normal)
[2022-11-29] MEDS ORDERED: ASPIRIN EC 81 MG TAB PO ONE (13:56)
[2022-11-29] MEDS ORDERED: SPIRONOLACTONE 25 MG TABLET ONE (13:58)
[2022-11-29] MEDS ORDERED: ASPIRIN 81 MG CHEWABLE TABLET ONE (14:46)
[2022-11-29 15:33] VITALS: BMI 20.5
[2022-11-29] MEDS ORDERED: PROPYLENE GLYCOL OPTH PRN (17:11)
[2022-11-29] MEDS ORDERED: PEG OPTH PRN (17:11)
--- NOTE | 2022-11-29 17:11 | P.HP ---
Certification for Inpatient With expected LOS: >2 Midnights Practitioner: I am a practitioner with admitting privileges, knowledge of patient current condition, hospital course, and medical plan of care. Services: Services provided to patient in accordance with Admission requirements found in Title 42 Section 412.3 of the Code of Federal Regulations Patient History Date of Service: 11/29/22 Reason for admission: Atrial fibrillation lower extremity edema History of Present Illness: Patient is 87 years of age with end-stage dementia as she lives in a alf daughter at the bedside apparently the alf doctor informed her that she had a very fast heart rate has been having some lower extremity edema prior history of A-fib or atrial fibrillation no prior history of cardiopulmonary disorder and appeared in the emergency room with A-fib currently very comfortable patient is on Lasix and spironolactone at home Allergies Penicillins Allergy (Verified 01/08/16 20:22) Shortness of breath Sulfa (Sulfonamide Antibiotics) Allergy (Verified 01/08/16 20:22) Rash codeine Adverse Reaction (Intermediate, Verified 01/10/16 10:32) Hives/Rash Cephalosporins Adverse Reaction (Verified 01/08/16 20:22) Nausea/Vomiting diphenhydramine [From Benadryl] Adverse Reaction (Verified 01/08/16 20:22) Shortness of breath codeine sul Allergy (Uncoded 01/03/17 22:04) Unknown codeine sulfat Allergy (Uncoded 01/09/16 06:34) Unknown codeine sulfate Allergy (Uncoded 01/02/18 16:19) Unknown Home Medications: Acetaminophen 1 tab PO TID PRN 11/29/22 Buspirone HCl [Buspar] 1 tab PO TID 11/29/22 Diclofenac Sodium [Arthritis Pain Reliever] 1 anil TOP BID 11/29/22 Divalproex Sodium 1 tab PO BID 11/29/22 Furosemide 1 tab PO BID 11/29/22 Potassium Chloride 1 tab PO BID 11/29/22 Propylene Glycol/Peg 400 [Lubricating Eye Drop] 1 gtts EACH EYE Q12H PRN 11/29/22 Quetiapine Fumarate [Seroquel] 1 tab PO DAILY 11/29/22 Spironolactone 1 tab PO DAILY 11/29/22 Trazodone HCl 0.5 tab PO Q24H PRN 11/29/22 - Past Medical/Surgical History Has patient received pneumonia vaccine in the past: Yes Diabetic: No -: bilateral cataract -: HTN -: Anemia -: Dementia -: Hysterectomy -: Knee surgery L -: Cataract surgery -: [place] tooth removal -: right hip sx -: Fall- subdural hematoma Psychosocial/ Personal History: Patient lives at home alone. - Family History Father -: Hypertension, Stroke Mother -: Cancer Sister -: Cancer - Social History Smoking Status: Never smoker Alcohol use: No CD- Drugs: No Caffeine use: Yes Place of Residence: Skilled Nursing Review of Systems is unable to be obtained Physical Examination - Vital Signs Temperature: 98.4 F Blood Pressure: 102/70 Pulse: 122 Respirations: 20 - Physical Exam General: Alert, Cooperative Neck: Supple Respiratory: Clear to auscultation bilaterally Cardiovascular: Edema (2+ edema) Gastrointestinal: Normal bowel sounds, Soft and benign Musculoskeletal: No clubbing, Swelling Integumentary: No rashes, No breakdown - Studies Laboratory Data (last 24 hrs) 11/29/22 10:51: PT 11.8, INR 1.07, APTT 29.4 11/29/22 10:51: WBC 5.00, Hgb 14.3, Hct 43.9, Plt Count 144 L 11/29/22 10:51: Sodium 139, Potassium 4.0, BUN 27 H, Creatinine 1.46 H, Glucose 122 H Assessment and Plan - Problems (Diagnosis) (1) Atrial fibrillation Current Visit: Yes Status: Acute Plan: Patient is 87 years of age admitted with new onset of A-fib end-stage dementia and lives in a alf able to ambulate and eat has difficulty swallowing pills cording to the daughter she is fallen multiple times CT of the head is negative 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
[2022-11-29] MEDS: QUETIAPINE 25 MG TAB PO SCH (21:08)
[2022-11-29] MEDS: DIVALPROEX DR 500MG TAB PO SCH (21:08)
[2022-11-29] MEDS: BUSPIRONE HCL 5 MG TABLET PO SCH (21:08)
[2022-11-30 03:22] LABS: Hematocrit 38.9 % (36.0-45.0); Lymphocytes % 41.9 % (15.3-44.8)
[2022-11-30 03:44] LABS: Albumin 2.7 g/dL (3.4-5.0); Bilirubin Total 0.5 mg/dL (0.2-1.0); Potassium 3.5 mEq/L (3.5-5.1); Protein, Total 5.1 g/dL (6.4-8.2)
[2022-11-30] MEDS: FUROSEMIDE 40 MG/4 ML VIAL IV SCH ×2 (09:00→10:56)
[2022-11-30] MEDS: ASPIRIN EC 81 MG TAB PO SCH (09:27)
[2022-11-30] MEDS: SPIRONOLACTONE 25 MG TABLET PO SCH ×2 (09:27→21:41)
[2022-11-30] MEDS: DIVALPROEX DR 500MG TAB PO SCH ×2 (09:28→21:38)
[2022-11-30] MEDS: BUSPIRONE HCL 5 MG TABLET PO SCH ×3 (09:28→21:37)
[2022-11-30] MEDS: METOPROLOL XL 25 MG TAB PO SCH (09:28)
--- NOTE | 2022-11-30 10:16 | P.PN ---
Subjective Date of Service: 11/30/22 Chief Complaint: Atrial fibrillation lower extremity edema Subjective: Improving (Improving no new complaints Will has rapid A-fib) Review of Systems Unremarkable Physical Examination - Vital Signs Temperature: 98.0 F Blood Pressure: 115/72 Pulse: 69 Respirations: 16 Pulse Ox (%): 97 - Physical Exam General: Alert, Cooperative Respiratory: Clear to auscultation bilaterally Cardiovascular: Edema (Edema has declined) - Studies Laboratory Data (last 24 hrs) 11/29/22 10:51: PT 11.8, INR 1.07, APTT 29.4 11/29/22 10:51: WBC 5.00, Hgb 14.3, Hct 43.9, Plt Count 144 L 11/29/22 10:51: Sodium 139, Potassium 4.0, BUN 27 H, Creatinine 1.46 H, Glucose 122 H Assessment And Plan - Current Problems (Diagnosis) (1) Atrial fibrillation Current Visit: Yes Status: Acute Plan: Patient admitted with rapid A-fib her rate continues to remain high will increase metoprolol for now await cardiology consult risk for anticoagulation continue with aspirin vital signs are stable patient is on Lasix and spironolactone at home DNR confirmed with the daughter we will add some digoxin today echocardiogram Labs reviewed renal function is improving TSH is satisfactory Qualifiers: Atrial fibrillation type: paroxysmal Qualified Code(s): I48.0 - Paroxysmal atrial fibrillation
[2022-11-30] MEDS ORDERED: DIGOXIN 0.25 MG TABLET PO ONE (10:25)
--- NOTE | 2022-11-30 14:44 | EKG ---
Test Date: 2022-11-29 Test Time: 10:13:35 Stewarding Supervisor: HB MEASUREMENT RESULTS: Intervals: Rate: 135 OR: QRSD: 70 QT: 254 QTc: 381 [place]: P: OR: QRS: 66 T: 118 INTERPRETIVE STATEMENTS: Atrial fibrillation with rapid ventricular response Low voltage QRS Septal infarct, age undetermined Abnormal ECG Compared to ECG 11/10/2021 15:02:52 Low QRS voltage now present Myocardial infarct finding now present Sinus rhythm no longer present Atrial premature complex(es) no longer present Electronically Signed On 11-30-22 14:43:23 CDT by Mariusz Joseph
--- NOTE | 2022-11-30 15:30 | CON ---
Date of Consultation: 11/30/2022 Reason For Consultation: Atrial fibrillations. History Of Present Illness: An -[id number]-[id number] with end-stage dementia. She was brought in pamela use of atrial fibrillation. Her doctor sent her to the emergency room. The patient's heart rate is controlled and she is not a candidate for anticoagulation due to fall risk. Past Medical History: Significant for hypertension, anemia, and dementia. Medications: Refer to reconciliation sheet for detailed list. Allergies: PENICILLIN, SULFA, AND CODEINE. Family History: No premature coronary artery disease or cancer. Social History: She does not smoke or drink. Does not use any drugs. Review of Systems: All systems reviewed and they were negative except what mentioned in HPI. Physical Examination: Vital Signs: Temperature is 97.6, pulse 52, breathing at 14, blood pressure is 130/72, saturating 97 % on room air. General: Pleasant elderly female, in no apparent distress. Head and Neck: Pupils are equal, reactive to light. Intact eye movements. No JVD. No cervical lym phadenopathy. Neck is supple. Thyroid is not enlarged. Lungs: Clear to auscultation. Bilateral present crackles. No accessory muscle use. Heart: Irregularly irregular with aortic ejection systolic murmur. Abdomen: Soft, nontender. Bowel sounds positive. No organomegaly. No masses or hernia. No rigidi ty or rebound. Extremities: No clubbing or cyanosis. Trace edema. Skin: No rash. Neurologic: Alert, awake, oriented x3. No acute focal deficits appreciated. Lymph Nodes: No cervical or axillary lymphadenopathy. Investigations: Labs were reviewed. Assessment And Recommendations: 1.Atrial fibrillation, rate is controlled. Continue metoprolol. I will discontinue digoxin on her given her age and titrate up the metoprolol if needed. She is not a candidate for anticoagulation or even invasive procedures due to advanced dementia and being DNR. Recommend baby aspirin 81 mg daily . 2.Aortic valve stenosis. On exam, late-peaking murmur suggestive of severe , probably causing con gestive heart failure. Obtain an echocardiogram. I had a long discussion with the daughter about ad anthony directives. They are leaning towards conservative management. SR/MODL Voice ID: [id number] Report ID: [id number]
[2022-11-30] MEDS: METOPROLOL XL 50 MG TAB PO SCH (21:38)
[2022-11-30] MEDS: QUETIAPINE 25 MG TAB PO SCH (21:39)
--- NOTE | 2022-12-01 07:02 | P.PN ---
Date of Service: 12/01/22 Subjective: restless night per daughter; she thinks its more mentation/dementia related afib is currently rate controlled; digoxin given yesterday then dc'd by cardio. metoprolol increased no SOB, no chest pain no new / worsening problems ROS: 10 point ROS as noted above, otherwise negative Physical Exam: GEN: +Dementia, pleasant, weak HEENT: Normal conjunctiva, sclera anicteric CV: irregularly irregular rhythm, HR: 70s, mild lower extremity edema, harsh systolic murmur Pulm: Nonlabored respirations on room air ABD: Soft, nontender, nondistended vitals reviewed Problem List: Paroxysmal A-fib CHF Hypertension Anemia Dementia Paroxysmal A-fib CHF currently rate controlled CXR 11/29 - Interstitial edema with pleural effusions and likely underlying atelectasis continue aspirin - too high risk for anticoagulation Cardiology consulted metoprolol increased 11/30 DC digoxin 11/30 continue Lasix echo pending - suspect severe aortic stenosis briefly discussed with daughter, undecided on whether to pursue surgery if it is severe. probably not Hypertension Anemia Dementia continue home medications supportive care Code: DNR Dispo: halfway 24 hrs special services coordinator consulted - daughter wants more info regarding hospice for the future
[2022-12-01 07:16] LABS: Potassium 3.7 mEq/L (3.5-5.1)
[2022-12-01] MEDS ORDERED: DIGOXIN 0.125 MG TABLET PO SCH (09:00)
[2022-12-01] MEDS: DIVALPROEX DR 500MG TAB PO SCH ×2 (09:46→21:03)
[2022-12-01] MEDS: ASPIRIN EC 81 MG TAB PO SCH (09:46)
[2022-12-01] MEDS: BUSPIRONE HCL 5 MG TABLET PO SCH ×3 (09:46→21:03)
[2022-12-01] MEDS: METOPROLOL XL 50 MG TAB PO SCH ×2 (09:46→21:00)
[2022-12-01] MEDS: SPIRONOLACTONE 25 MG TABLET PO SCH ×2 (09:46→21:03)
[2022-12-01] MEDS: FUROSEMIDE 40 MG/4 ML VIAL IV SCH (09:47)
--- NOTE | 2022-12-01 12:20 | ECHO ---
HEIGHT: 5 ft 4 in WEIGHT: 120 lb 0 oz DATE OF STUDY: 12/01/[address]: Uche Webb MD 2-DIMENSIONAL: YES M.MODE: YES DOPPLER: YES COLOR FLOW: YES TDS: NO PORTABLE: YES DEFINITY: NO BUBBLE STUDY: NO DIAGNOSIS: CONGESTIVE HEART FAILURE/ ATRIAL FIBRILLATION CARDIAC HISTORY: CATHERIZATION: SURGERY: PROSTHETIC VALVE: PACEMAKER: MEASUREMENTS (cm) DIASTOLIC (NORMALS) SYSTOLIC (NORMALS) IVSd 0.7 (0.6-1.2) LA Diam 3.3 (1.9-4.0) LVEF 40-45% LVIDd 3.2 (3.5-5.7) LVIDs 2.4 (2.0-3.5) %FS 25% LVPWd 0.6 (0.6-1.2) Ao Diam 2.4 (2.0-3.7) 2 DIMENSIONAL ASSESSMENT: RIGHT ATRIUM: NORMAL LEFT ATRIUM: NORMAL RIGHT VENTRICLE: NORMAL LEFT VENTRICLE: NORMAL SIZE TRICUSPID VALVE: NORMAL MITRAL VALVE: MITRAL ANNULAR CALCIFICATION PULMONIC VALVE: NORMAL AORTIC VALVE: STENOTIC PERICARDIAL EFFUSION: NONE AORTIC ROOT: NORMAL LEFT VENTRICULAR WALL MOTION: MILD GLOBAL HYPOKINESIS. DOPPLER/COLOR FLOW: SEVERE AORTIC STENOSIS .8 CENTIMETERS SQUARED. COMMENTS: SEVERE AORTIC STENOSIS .8 CENTIMETERS SQUARED MILD GLOBAL HYPOKINESIS MITRAL ANNULAR CALCIFICATION TECHNOLOGIST: HAILY MCKEON
[2022-12-01] MEDS: QUETIAPINE 25 MG TAB PO SCH (21:03)
--- NOTE | 2022-12-01 22:57 | PN ---
Ms. Encarnacion came in with atrial fibrillation, congestive heart failure. She has end-stage dementia a nd she is a do not resuscitate. Dr. Joseph ordered an echocardiogram because of possibility of aorti c stenosis. She is on aspirin for atrial fibrillation. She is not a candidate for anticoagulation b ecause of her DNR status and dementia. Echocardiogram which was done today, showed severe aortic lisa nosis of 0.8 sq cm. Ejection fraction is about 45%. Case will be discussed with the patient and the family. No change in plan for now. NB/CHANDRAL Voice ID: [id number] Report ID: [id number]
[2022-12-02 07:04] LABS: Potassium 3.4 mEq/L (3.5-5.1)
[2022-12-02 07:47] VITALS: O2SAT 97
[2022-12-02] MEDS: SPIRONOLACTONE 25 MG TABLET PO SCH (08:28)
[2022-12-02] MEDS: DIVALPROEX DR 500MG TAB PO SCH (08:28)
[2022-12-02] MEDS: ASPIRIN EC 81 MG TAB PO SCH (08:29)
[2022-12-02] MEDS: METOPROLOL XL 50 MG TAB PO SCH (08:29)
[2022-12-02] MEDS: FUROSEMIDE 40 MG/4 ML VIAL IV SCH (08:29)
[2022-12-02] MEDS: BUSPIRONE HCL 5 MG TABLET PO SCH (08:29)
--- NOTE | 2022-12-02 11:07 | P.DS ---
Admission Date: 11/29/22 Discharge Date: 12/02/22 Disposition: TRANSFER TO RESIDENTIAL Discharge Condition: FAIR Reason for Admission: Atrial fibrillation lower extremity edema Brief History of Present Illness: Patient is 87 years of age with end-stage dementia who lives in a residential was brought to the emergency department due to rapid heart rate. Patient has a history of atrial fibrillation.she has advanced dementia and cannot provide any subjective complaint. Daughter at her bedside provided history. She also has a history of lower extremity edema for which she takes lasix.patient noted to have rapid atrial fibrillation in the emergency department. Serum creatinine mildly elevated, check x-ray showed no acute disease. Patient was hospitalized for further management. Hospital Course: Diagnosis Paroxysmal A-fib CHF Hypertension Anemia Dementia Patient admitted to the medical floor and the following medical problems addressed: Paroxysmal A-fib CHF Patient seen by cardiology and started on oral metoprolol His heart rate was controlled CXR 11/29 - Interstitial edema with pleural effusions and likely underlying atelectasis She was also treated with IV Lasix. She is on aspirin. She is too high risk for anticoagulation echo:- SEVERE AORTIC STENOSIS .8 CENTIMETERS SQUARED MILD GLOBAL HYPOKINESIS MITRAL ANNULAR CALCIFICATION According to the daughter family does not want to proceed with any surgical treatment for aortic stenosis. Hypertension Anemia Dementia continued home medications Patient is DNR. Daughter is considering the option of hospice. Patient has clinically improved, she is tolerating diet, atrial fibrillation is rate controlled. She is stable for discharge. Her home dose Lasix 80 mg twice daily changed to 40 mg twice daily to reduce risk of dehydration. Vital Signs/Physical Exam: Temp Pulse Resp BP Pulse Ox 97.4 F 78 18 122/67 93 12/02/22 08:00 12/02/22 08:29 12/02/22 08:00 12/02/22 08:29 12/02/22 08:00 General: In no apparent distress, Oriented x3, Other (Awake) HEENT: Mucous membr. moist/pink Neck: JVD not distended Respiratory: Clear to auscultation bilaterally, Normal air movement Cardiovascular: Normal S1 S2, Edema (1+ bilateral lower extremity edema), Irregular heart rate/rhythm Gastrointestinal: Soft and benign, Non-distended Integumentary: Other (Bilateral venous stasis dermatitis) Neurological: Normal strength at 5/5 x4 extr Laboratory Data at Discharge: WBC 4.90 thou/uL (4.3-10.9) 11/30/22 02:35 Hgb 13.0 g/dL (12.0-15.0) D 11/30/22 02:35 Hct 38.9 % (36.0-45.0) 11/30/22 02:35 Plt Count 126 thou/uL (152-406) L 11/30/22 02:35 PT 11.8 SECONDS (9.5-12.5) 11/29/22 10:51 INR 1.07 11/29/22 10:51 APTT 29.4 SECONDS (24.3-36.9) 11/29/22 10:51 Sodium 138 mEq/L (136-145) 12/02/22 06:35 Potassium 3.4 mEq/L (3.5-5.1) L 12/02/22 06:35 BUN 25 mg/dL (7-18) H 12/02/22 06:35 Creatinine 1.08 mg/dL (0.55-1.02) H 12/02/22 06:35 Glucose 86 mg/dL (74-106) 12/02/22 06:35 Total Bilirubin 0.5 mg/dL (0.2-1.0) 11/30/22 02:35 AST 17 U/L (15-37) 11/30/22 02:35 ALT 16 U/L (13-56) 11/30/22 02:35 Alkaline Phosphatase 74 U/L (45-117) 11/30/22 02:35 Home Medications: Acetaminophen 1 tab PO TID PRN 11/29/22 Buspirone HCl [Buspar] 1 tab PO TID 11/29/22 Divalproex Sodium 1 tab PO BID 11/29/22 Potassium Chloride 1 tab PO BID 11/29/22 Propylene Glycol/Peg 400 [Lubricating Eye Drop] 1 gtts EACH EYE Q12H PRN 11/29/22 Quetiapine Fumarate [Seroquel] 1 tab PO DAILY 11/29/22 Spironolactone 1 tab PO DAILY 11/29/22 Trazodone HCl 0.5 tab PO Q24H PRN 11/29/22 Furosemide [Lasix] 40 mg PO BIDL #60 tab 12/02/22 Metoprolol Succinate [Toprol Xl*] 50 mg PO BID 30 Days #60 tab 12/02/22 New Medications: Furosemide [Lasix] 40 mg PO BIDL #60 tab Metoprolol Succinate [Toprol Xl*] 50 mg PO BID 30 Days #60 tab Diet: AHA Activity: Fall precautions Followup: Kai Galvez MD [ACTIVE - CAN ADMIT] - Gregg Wetzel MD [Primary Care Provider] - 1 Week Time spent managing pt's care (in minutes): 36
[2022-12-02 13:49] VITALS: BP 133/60; TEMP 97.8
== END 2022-12-02 12:46 | disposition home or self-care (01) | DRG 291 ==
LOC: ER 10:07 → ERHOLD 12:11 → 2ND 14:17
PROVIDERS: ADMIT Internal Medicine Sleep Medicine; ATTEND Internal Medicine
DX: I11.0 Hypertensive heart disease with heart failure (principal); I50.21 Acute systolic (congestive) heart failure; N17.9 Acute kidney failure, unspecified; J84.9 Interstitial pulmonary disease, unspecified; I48.0 Paroxysmal atrial fibrillation; I35.0 Nonrheumatic aortic (valve) stenosis; D64.9 Anemia, unspecified; F03.90 Unspecified dementia, unspecified severity, without behavioral disturbance, psychotic disturbance, mood disturbance, and anxiety; Z88.5 Allergy status to narcotic agent; Z88.8 Allergy status to other drugs, medicaments and biological substances; Z88.1 Allergy status to other antibiotic agents; Z66 Do not resuscitate; Z88.0 Allergy status to penicillin; Z90.710 Acquired absence of both cervix and uterus; Z79.899 Other long term (current) drug therapy; W18.30XA Fall on same level, unspecified, initial encounter; Y93.9 Activity, unspecified; Y92.129 Unspecified place in nursing home as the place of occurrence of the external cause
CPT/HCPCS: 36415; 70450; 71045; 80048; 80053; 81001; 82947; 83880; 84439; 84443; 84484; 85025; 85610; 85730; 93005; 93306; 94760; 96374; 96375; 99285; J1940; J7040